=== PATIENT | female | born 1940 | race Caucasian/White ===

== ENCOUNTER 2017-11-17 11:58 | Outpatient (CLI) | payer MEDICARE, OTHER | END 2017-11-17 11:59 | disposition home or self-care (01) | LOC: BICMRI 11:58 | PROVIDERS: ATTEND Anesthesiology Pain Medicine | DX: M47.22 Other spondylosis with radiculopathy, cervical region (principal); M99.81 Other biomechanical lesions of cervical region; M50.11 Cervical disc disorder with radiculopathy, high cervical region; M48.02 Spinal stenosis, cervical region; M50.121 Cervical disc disorder at C4-C5 level with radiculopathy; M51.24 Other intervertebral disc displacement, thoracic region | CPT/HCPCS: 72141 ==

== ENCOUNTER 2018-02-22 10:18 | Outpatient (CLI) | payer MEDICARE, OTHER ==
[2018-02-22 10:49] LABS: Hemoglobin 12.9 g/dL (12.0-16.0); Mean Corpuscular HGB CONC 31.2 g/dL (32.0-36.0); Mean Corpuscular Hemoglobin 27.9 pg (27.0-31.0); Mean Corpuscular Volume 89.2 fL (78.0-98.0); Mean Platelet Volume 7.5 fL (7.4-10.4); Platelet Count 289 thou/uL (130-400); RBC Distribution Width 12.6 % (11.5-14.5); Red Blood Cell (RBC) Count 4.62 mill/uL (4.20-5.40); White Blood Cell (WBC) Count 9.3 thou/uL (4.8-10.8)
[2018-02-22 11:16] LABS: Anion Gap 14 mmol/L (10-20); BUN (Urea Nitrogen) 13 mg/dL (9.8-20.1); Calc. Creatinine Clearance 0 mL/min (70-130); Calcium 9.7 mg/dL (7.8-10.44); Carbon Dioxide 22 mmol/L (23-31); Chloride 108 mmol/L (98-107); Estimated GFR-MDRD 74; Glucose 137 mg/dL (83-110); Potassium 4.8 mmol/L (3.5-5.1); Sodium 139 mmol/L (136-145)
== END 2018-02-22 10:19 | disposition home or self-care (01) ==
LOC: LABBT 10:18
PROVIDERS: ATTEND Neurological Surgery
DX: Z01.812 Encounter for preprocedural laboratory examination (principal); M47.12 Other spondylosis with myelopathy, cervical region
CPT/HCPCS: 80048; 85027

== ENCOUNTER 2018-02-26 05:38 | Inpatient (IN) | payer MEDICARE, OTHER ==
[2018-02-26] MEDS ORDERED: CEFAZOLIN 2 GM/50 ML BAG ONE (06:27)
[2018-02-26] MEDS ORDERED: Sodium Chloride 0.9% 10 ML ONE (06:30)
[2018-02-26] MEDS ORDERED: Famotidine/PF 20 mg/2ml Vial ONE (07:05)
[2018-02-26] MEDS ORDERED: Fentanyl 100 MCG/2 ML VIAL ONE ×2 (07:05→08:43)
--- NOTE | 2018-02-26 08:34 | OP ---
DATE OF PROCEDURE: 02/26/2018 SURGEON: Joshua Andrade M.D. DENTAL BILLER: Duran Regan PA-C. PROCEDURES PERFORMED: Anterior cervical discectomy C3-C4 and C4-C5, interbody arthrodesis, intervert ebral biomechanical device, local morselized autograft, demineralized bone matrix, anterior titanium instrumentation C3-C4 and C4-C5. PROCEDURE IN DETAIL: The patient was brought to the operating room and intubated. She was positione d supine in modest extension on a gel-filled donut. Incision was made in the right precervical area and dissecting medial to the sternocleidomastoid muscle, identified the anterior cervical spine and o ur level was confirmed by x-ray. We debrided anterior osteophytes, placed distraction across the dis c spaces, and using the operating microscope and microdissection techniques, we completely decompress ed the intervertebral disks at C3-C4 and C4-C5. The bony endplates were then decorticated for the pu rpose of arthrodesis and appropriately sized intervertebral biomechanical PEEK device was brought int o the field, filled with demineralized bone matrix, local morselized autograft, and tapped into place securely at C3-C4, C4-C5. Next, an anterior plate was brought into the field and secured to C3, C4, and C5 using two 14 mm screws at each level. The wound was then extensively irrigated, immaculate h emostasis was secured, and the wound was closed in anatomic layers.
[2018-02-26] MEDS ORDERED: Ondansetron HCl/PF 4 MG/2 ML Vial IVP PRN (08:41)
[2018-02-26] MEDS ORDERED: Meperidine HCl/PF 25 MG/ML VIAL SLOW IVP PRN (08:41)
[2018-02-26] MEDS ORDERED: Promethazine HCl 25 MG/ML VIAL SLOW IVP PRN (08:41)
[2018-02-26] MEDS ORDERED: Promethazine HCl 25 MG/ML VIAL IM PRN (08:41)
[2018-02-26] MEDS ORDERED: Ketorolac Tromethamine 30 MG/ML VIAL IVP PRN (08:41)
[2018-02-26] MEDS ORDERED: diphenhydrAMINE 25 MG CAP PO PRN (08:53)
[2018-02-26] MEDS ORDERED: traMADol HCl 50 MG TAB PO PRN ×2 (08:53)
[2018-02-26] MEDS ORDERED: HYDROcodone/Acetaminophen 10/325 mg Tablet PO PRN ×2 (08:53)
[2018-02-26] MEDS ORDERED: diphenhydrAMINE 50 MG/ML VIAL IVP PRN (08:53)
[2018-02-26] MEDS ORDERED: Milk Of Magnesia 30 ML UDCUP PO PRN (08:53)
[2018-02-26] MEDS ORDERED: tiZANidine HCl 4 MG TAB PO PRN (08:53)
[2018-02-26] MEDS ORDERED: Morphine 4 MG/ML VIAL SLOW IVP PRN (08:53)
[2018-02-26] MEDS ORDERED: Mag-Al 1200 mg/1200 mg/30 ML UDCUP PO PRN (08:53)
[2018-02-26] MEDS ORDERED: Ondansetron PF 4 MG/2 ML Vial IVP PRN (08:55)
[2018-02-26] MEDS ORDERED: Labetalol HCl 100 MG/20 ML VIAL ONE (09:40)
[2018-02-26 10:18] VITALS: BMI 31.4
[2018-02-26] MEDS ORDERED: Diabetic Tussin 200 MG/10 ML UDCUP PO PRN (11:02)
[2018-02-26] MEDS ORDERED: Benzonatate 100 MG CAP PO PRN (11:02)
[2018-02-26] MEDS ORDERED: Dextrose 5% in Water 1,000 ML IV PRN (11:02)
[2018-02-26] MEDS ORDERED: Cepastat Lozenges 1 LOZ PO PRN (11:02)
[2018-02-26] MEDS ORDERED: HumaLOG 300 UNITS/3 ML VIAL SC PRN (11:02)
[2018-02-26] MEDS ORDERED: hydrALAZINE 20 MG/ML VIAL SLOW IVP PRN (11:02)
[2018-02-26] MEDS ORDERED: Bisacodyl 5 MG TAB PO PRN (11:02)
[2018-02-26] MEDS ORDERED: Acetaminophen 500 MG TAB PO PRN (11:02)
[2018-02-26] MEDS ORDERED: Dextrose 50% Abboject 50 ML SYRINGE SLOW IVP PRN (11:02)
[2018-02-26] MEDS ORDERED: HYDROcodone/Acetaminophen 5/325 mg Tablet PO PRN (11:02)
[2018-02-26] MEDS ORDERED: cloNIDine 0.1 MG TAB PO PRN (11:02)
[2018-02-26] MEDS ORDERED: Senokot S 8.6-50 MG TAB PO PRN (11:02)
[2018-02-26] MEDS: Sodium Chloride 0.9% 1,000 ML IV SCH ×2 (11:41→23:24)
--- NOTE | 2018-02-26 12:59 | PDOC.PN ---
- Subjective Encounter Start Date: 02/26/18 Encounter Start Time: 12:57 Subjective: Pt seen & examined.IM team conslted fo rmedical management -: PCP [facility] in [place]. -: s/p Cervical laminectomy - Objective MAR Reviewed: Yes Vital Signs & Weight: Vital Signs (12 hours) Temp Pulse Resp BP Pulse Ox 02/26/18 11:44 98.0 F 87 16 166/88 H 96 02/26/18 10:05 98.4 F 78 16 172/92 H 93 L Weight Weight 189 lb Additional Labs: Accuchecks 02/26/18 11:38 POC Glucose 199 H Phys Exam - Physical Examination Constitutional: NAD HEENT: PERRLA, moist MMs, sclera anicteric, oral pharynx no lesions Neck: no nodes, no JVD, supple, full ROM Respiratory: no wheezing, no rales, no rhonchi, clear to auscultation bilateral Cardiovascular: RRR, no significant murmur, no rub, gallop Gastrointestinal: soft, non-tender, no distention, positive bowel sounds Musculoskeletal: no edema, pulses present Neurological: non-focal, normal sensation, moves all 4 limbs Psychiatric: normal affect, A&O x 3 Skin: no rash Dx/Plan (1) HTN (hypertension) Code(s): I10 - ESSENTIAL (PRIMARY) HYPERTENSION Status: Acute Comment: uncontrolled (2) S/P laminectomy Code(s): Z98.890 - OTHER SPECIFIED POSTPROCEDURAL STATES Status: Acute (3) HLD (hyperlipidemia) Code(s): E78.5 - HYPERLIPIDEMIA, UNSPECIFIED Status: Chronic (4) DM2 (diabetes mellitus, type 2) Status: Chronic - Plan plan discussed w/ family, PT/OT, DVT proph w/lovenox cont home meds as below. add prn antihypertensives -: Stop metformin ,.add ISS and Accuchecks ACHS -: am labs -: HD stable. -: IM team will follow. * . Review of Systems - Review of Systems Constitutional: negative: fever, chills, sweats, weakness, malaise, other Respiratory: negative: Cough, Dry, Shortness of Breath, Hemoptysis, SOB with Excertion, Pleuritic Pain, Sputum, Wheezing Cardiovascular: negative: chest pain, palpitations, orthopnea, paroxysmal nocturnal dyspnea, edema, light headedness, other Gastrointestinal: negative: Nausea, Vomiting, Abdominal Pain, Diarrhea, Constipation, Melena, Hematochezia, Other Genitourinary: negative: Dysuria, Frequency, Incontinence, Hematuria, Retention , Other Musculoskeletal: negative: Neck Pain, Shoulder Pain, Arm Pain, Back Pain, Hand Pain, Leg Pain, Foot Pain, Other Skin: negative: Rash, Lesions, Fredrick, Bruising, Other Neurological: negative: Weakness, Numbness, Incoordination, Change in Speech, Confusion, Seizures, Other - Medications/Allergies Allergies/Adverse Reactions: Allergies Allergy/AdvReac Type Severity Reaction Status Date / Time No Known Allergies Allergy Verified 02/22/18 10:47 Medications: Current Medications Acetaminophen (Tylenol) 1,000 mg PO Q6H PRN PRN Reason: Mild Pain (1-3) Hydrocodone Bitart/Acetaminophen (Wiley 10/325) 1 tab PO Q4H PRN PRN Reason: PAIN (1-3) Hydrocodone Bitart/Acetaminophen (Wiley 10/325) 2 tab PO Q4H PRN PRN Reason: PAIN (4-6) Hydrocodone Bitart/Acetaminophen (Wiley 5/325) 1 tab PO Q4H PRN PRN Reason: Moderate Pain (4-6) Al Hydroxide/Mg Hydroxide (Maalox) 30 ml PO Q4H PRN PRN Reason: Heartburn or Indigestion Atorvastatin Calcium (Lipitor) 20 mg PO QPM HIREN Benzonatate (Tessalon) 100 mg PO Q6H PRN PRN Reason: Cough Bisacodyl (Dulcolax) 10 mg PO DAILYPRN PRN PRN Reason: Constipation Clonidine (Catapres) 0.1 mg PO Q4H PRN PRN Reason: SBP > 160____ Dextrose/Water (Dextrose 50%) 25 gm SLOW IVP PRN PRN PRN Reason: Hypoglycemia Diphenhydramine HCl (Benadryl) 25 mg PO Q6H PRN PRN Reason: Itching Diphenhydramine HCl (Benadryl) 25 mg IVP Q6H PRN PRN Reason: Itching Glucagon (Glucagon) 1 mg IM PRN PRN PRN Reason: Hypoglycemia Guaifenesin (Robitussin Sf) 200 mg PO Q4H PRN PRN Reason: Cough Hydralazine HCl (Apresoline) 10 mg SLOW IVP Q4H PRN PRN Reason: SBP > 180 and HR < 70 Sodium Chloride (Normal Saline 0.9%) 1,000 mls @ 75 mls/hr IV .[id number] [facility] Last Admin: 02/26/18 11:41 Dose: Not Given Cefazolin Sodium/Dextrose 2 gm (/ Device) 50 mls @ 100 mls/hr IVPB Q8HR [facility] Dextrose/Water (D5w) 1,000 mls @ 0 mls/hr IV .Q0M PRN PRN Reason: Hypoglycemia Insulin Human Lispro (Humalog) 0 units SC .MODERATE SLIDING SC PRN PRN Reason: Moderate Correctional Scale Insulin Human Lispro (Humalog) 0 units SC .BEDTIME SLIDING SC PRN PRN Reason: Bedtime Correctional Scale Magnesium Hydroxide (Milk Of Magnesium) 30 ml PO Q12H PRN PRN Reason: Constipation Morphine Sulfate (Morphine) 2 mg SLOW IVP Q1H PRN PRN Reason: Moderate Breakthrough Pain Morphine Sulfate (Morphine) 4 mg SLOW IVP Q1H PRN PRN Reason: SEVERE BREAKTHROUGH PAIN Ondansetron HCl (Zofran) 4 mg IVP Q6H PRN PRN Reason: Nausea/Vomiting Pantoprazole Sodium (Protonix) 40 mg PO QPM [facility] Pramipexole Dihydrochloride (Mirapex) 0.5 mg PO QPM [facility] Senna/Docusate Sodium (Senokot S) 2 tab PO BID PRN PRN Reason: Constipation Sodium Chloride (Flush - Normal Saline) 10 ml IVF Q12HR [facility] Last Admin: 02/26/18 11:41 Dose: Not Given Sodium Chloride (Flush - Normal Saline) 10 ml IVF PRN PRN PRN Reason: Saline Flush Throat Lozenges (Cepastat Lozenges) 1 shad PO Q2H PRN PRN Reason: Sore Throat Tizanidine HCl (Zanaflex) 4 mg PO Q6H PRN PRN Reason: MUSCLE SPASM Tramadol HCl (Ultram) 50 mg PO Q6H PRN PRN Reason: PAIN (1-3) Tramadol HCl (Ultram) 100 mg PO Q6H PRN PRN Reason: PAIN (4-6) Last Admin: 02/26/18 12:47 Dose: 100 mg
[2018-02-26] MEDS: CEFAZOLIN 2 GM/50 ML-DEXTROSE 2 GM in Premix Bag 1 BAG IVPB SCH ×2 (13:53→21:41)
[2018-02-26] MEDS ORDERED: Lidocaine 1% PF 5 ML VIAL ONE (15:01)
[2018-02-26] MEDS ORDERED: PROPOFOL 200 MG/20 ML VIAL ONE (15:01)
[2018-02-26] MEDS ORDERED: PHENYLEPHRINE-NS 100 MCG/ML 10 ML SYRINGE ONE (15:01)
[2018-02-26] MEDS ORDERED: Metoprolol Tartrate 5 MG/5 ML VIAL ONE (15:01)
[2018-02-26] MEDS ORDERED: Dexamethasone 20 MG/5 ML VIAL ONE (15:01)
[2018-02-26] MEDS ORDERED: Glycopyrrolate 0.2 MG/ML 5 ML SYRINGE ONE (15:01)
[2018-02-26] MEDS: HumaLOG 300 UNITS/3 ML VIAL SC PRN (16:45)
[2018-02-26] MEDS ORDERED: Non-Formulary Item 1 EACH (Ranitidine Hcl [Acid Reducer] 150 MG) PO SCH (21:00)
[2018-02-26] MEDS ORDERED: Atorvastatin Calcium 20 MG TAB PO SCH (21:00)
[2018-02-26] MEDS ORDERED: Pramipexole Di-HCl 0.25 MG TAB PO SCH (21:00)
[2018-02-27] MEDS: CEFAZOLIN 2 GM/50 ML-DEXTROSE 2 GM in Premix Bag 1 BAG IVPB SCH (05:22)
[2018-02-27 06:04] LABS: #Lymphocytes 2.8 thou/uL (1.20-3.40); #Monocytes 0.8 thou/uL (0.11-0.59); %Basophils 0.1 % (0.0-1.0); %Eosinophils 0.1 % (0.0-10.0); %Lymphocytes 20.4 % (21.0-51.0); %Monocytes 6.1 % (0.0-10.0); %Neutrophils 73.3 % (42.0-75.0); Hemoglobin 12.1 g/dL (12.0-16.0); Mean Corpuscular HGB CONC 31.4 g/dL (32.0-36.0); Mean Corpuscular Hemoglobin 27.9 pg (27.0-31.0); Mean Corpuscular Volume 88.8 fL (78.0-98.0); Mean Platelet Volume 7.4 fL (7.4-10.4); Platelet Count 277 thou/uL (130-400); RBC Distribution Width 12.4 % (11.5-14.5); Red Blood Cell (RBC) Count 4.33 mill/uL (4.20-5.40); White Blood Cell (WBC) Count 13.6 thou/uL (4.8-10.8)
[2018-02-27 06:17] LABS: Anion Gap 13 mmol/L (10-20); BUN (Urea Nitrogen) 13 mg/dL (9.8-20.1); Calc. Creatinine Clearance 90 mL/min (70-130); Calcium 9.2 mg/dL (7.8-10.44); Carbon Dioxide 25 mmol/L (23-31); Chloride 103 mmol/L (98-107); Estimated GFR-MDRD 79; Glucose 180 mg/dL (83-110); Potassium 4.1 mmol/L (3.5-5.1); Sodium 137 mmol/L (136-145)
[2018-02-27] MEDS: HumaLOG 300 UNITS/3 ML VIAL SC PRN (06:58)
--- NOTE | 2018-02-27 06:59 | DIS ---
ATTENDING PHYSICIAN: Dr. Joshua Andrade DATE OF ADMISSION: 02/26/2018 DATE OF DISCHARGE: 02/27/2018 HOSPITAL COURSE: The patient is a 77-year-old female status post C3-5 ACDF for degenerativ e disk disease who was admitted overnight for pain control and DORA placement. Overnight, her pain was well controlled with p.o. medications. She was tolerating a regular diet, and she was voiding appro priately. DORA drain output was 30 mL and removed the following morning by the nursing staff. I am se eing the patient at the bedside this morning. Patient seen at bedside the morning she is awake, alert, no acute distress. She has free active rang e of motion of all extremities. No focal motor weakness, no reflex asymmetry. She has steady gait. We will plan to dismiss the patient to home. I discussed home care precautions and will plan to foll ow up in 2 weeks in the office with x-rays. The patient has been provided with scripts for hydrocodo ne and Zanaflex.
[2018-02-27 08:05] VITALS: BP 127/77; TEMP 98
== END 2018-02-27 11:10 | disposition home or self-care (01) | DRG 473 ==
LOC: SDC 05:38 → SURG B 08:47
PROVIDERS: ADMIT Neurological Surgery; ATTEND Neurological Surgery
PROC: 0RB30ZZ Excision of Cervical Vertebral Disc, Open Approach (ICD-10-PCS; principal; 2018-02-26)
PROC: 0RG20A0 Fusion of 2 or more Cervical Vertebral Joints with Interbody Fusion Device, Anterior Approach, Anterior Column, Open Approach (ICD-10-PCS; 2018-02-26)
DX: M47.12 Other spondylosis with myelopathy, cervical region (principal); M50.31 Other cervical disc degeneration, high cervical region; I10 Essential (primary) hypertension; E78.5 Hyperlipidemia, unspecified; E11.9 Type 2 diabetes mellitus without complications
CPT/HCPCS: 36415; 36416; 76001; 80048; 85025; 90471; 90662; C1713; C1776; G0008; J0131; J1100; J2001; J2270; J2704; J3010; J3490; S0028

== ENCOUNTER 2018-03-13 15:56 | Outpatient (CLI) | payer MEDICARE, OTHER ==
--- NOTE | 2018-03-13 17:45 | RAD ---
THREE VIEWS CERVICAL SPINE SERIES: 03/13/18 INDICATION: Cervical spondylosis with myelopathy. FINDINGS: The C1-2 level is partially obscured which limits evaluation of this region. There is anterior cervic al disc fusion spanning C3 through C5 with anterior plate, two vertebral body screws at each fused le sally and intervening disc space prosthesis at C3-4 and C4-5. No hardware complication identified. No a cute malalignment within the imaged cervical spine, to the mid C7 level. There is multilevel cervical spine degenerative change. IMPRESSION: Postoperative cervical spine without acute hardware complication. POS: MATA
== END 2018-03-13 15:57 | disposition home or self-care (01) ==
LOC: TBSIIMAG 15:56
PROVIDERS: ATTEND Neurological Surgery
DX: M47.12 Other spondylosis with myelopathy, cervical region (principal); Z98.1 Arthrodesis status
CPT/HCPCS: 72040

== ENCOUNTER 2018-05-01 13:33 | Outpatient (CLI) | payer MEDICARE, OTHER ==
--- NOTE | 2018-05-01 14:41 | RAD ---
CERVICAL SPINE 4 VIEWS: Date: 05/01/18 COMPARISON: 03/13/18. HISTORY: Cervical radiculopathy, prior surgery. FINDINGS: Anterior diskectomy and fusion hardware is present at C3-4/C4-5, stable when compared to the prior ex amination. No prevertebral soft tissue swelling. No anterolisthesis or retrolisthesis is noted. There is degenerative change at the atlantoaxial interspace, stable as well. At C6-7, there is disc space narrowing with degenerative end plate change, as well as anterior and po sterior osteophyte formation. Open-mouth odontoid view demonstrates a normal appearing dens and C1-2 articulation. There is multilevel mid cervical spine facet and uncovertebral osteophyte formation bilaterally. IMPRESSION: Multilevel postoperative and degenerative change of the cervical spine as detailed above. POS: MATA
== END 2018-05-01 13:34 | disposition home or self-care (01) ==
LOC: TBSIIMAG 13:33
PROVIDERS: ATTEND Neurological Surgery
DX: M50.10 Cervical disc disorder with radiculopathy, unspecified cervical region (principal); M47.22 Other spondylosis with radiculopathy, cervical region; Z98.1 Arthrodesis status
CPT/HCPCS: 72040

== ENCOUNTER 2018-08-13 11:25 | Outpatient (CLI) | payer MEDICARE, OTHER ==
--- NOTE | 2018-08-13 11:54 | RAD ---
RIGHT HIP 2 VIEWS: HISTORY: Unilateral primary osteoarthritis, right hip pain for months. FINDINGS/IMPRESSION: Osteoarthrosis and degenerative changes right hip joint with joint space loss without acute fracture or dislocation. POS: TPC
== END 2018-08-13 11:26 | disposition home or self-care (01) ==
LOC: BICRAD 11:25
PROVIDERS: ATTEND Anesthesiology Pain Medicine
DX: M16.11 Unilateral primary osteoarthritis, right hip (principal)

== ENCOUNTER 2018-10-04 01:50 | Outpatient (CLI) | payer MEDICARE, OTHER ==
--- NOTE | 2018-10-05 21:25 | EKG ---
Test Reason : Blood Pressure : / mmHG Vent. Rate : 065 BPM Atrial Rate : 065 BPM P-R Int : 216 ms QRS Dur : 080 ms QT Int : 418 ms P-R-T Axes : 054 -66 040 degrees QTc Int : 434 ms Sinus rhythm with 1st degree A-V block Left axis deviation Low voltage QRS Cannot rule out Anterior infarct , age undetermined Abnormal ECG No previous ECGs available Confirmed by Pa ALONSO ([id number]) on 10/05/2018 9:25:08 PM Referred By: SHARON Confirmed By:Pa ALONSO
== END 2018-10-04 01:51 | disposition home or self-care (01) ==
LOC: LABBT 01:50
PROVIDERS: ATTEND Orthopaedic Surgery
DX: Z01.810 Encounter for preprocedural cardiovascular examination (principal); M16.11 Unilateral primary osteoarthritis, right hip
CPT/HCPCS: 93005; 93010

== ENCOUNTER 2018-10-04 14:30 | Inpatient (IN) | payer MEDICARE, OTHER ==
--- NOTE | 2018-10-04 09:35 | HP ---
HISTORY OF PRESENT ILLNESS: The patient is a 78-year-old female, who has a several history of progressive right hip pain, which has become much worse over the past 1 to 2 months. She has pain in the right denny, certain motions such as getting dressed and getting in and out of a car. She has had progressive symptoms despite restriction of activities, anti-inflammatory medications, and lifestyle adjustments. PAST MEDICAL HISTORY: She has had bilateral total knee replacements in the past. She has a history of depression, migraines, and diabetes. MEDICATIONS: Her current medications include; 1. Pantoprazole. 2. Metformin. 3. Ranitidine. 4. Lipitor. 5. Pramipexole. 6. Hydrocodone. ALLERGIES: SHE HAS NO KNOWN ALLERGIES. FAMILY HISTORY: Otherwise unremarkable. SOCIAL HISTORY: Otherwise unremarkable. REVIEW OF SYSTEMS: Otherwise unremarkable. PHYSICAL EXAMINATION: GENERAL: Reveals a healthy female. HEENT: Unremarkable. NECK: Supple. CHEST: Clear. HEART: Regular rate and rhythm. ABDOMEN: Soft and nontender. PELVIC: Deferred. RECTAL: Deferred. BREAST: Deferred. EXTREMITIES: Pertinent findings are related to her right hip. Her leg lengths were equal. There is tenderness in the greater trochanter and the anterior hip. There is decreased range of motion of the right hip and groin pain with internal rotation, which reproduces her hip and knee pain. There is a right antalgic gait. Neurovascular exam is intact. There is no specific tenderness about the right knee. DIAGNOSTIC DATA: X-rays of the right hip reveal moderately severe DJD in the right hip with minimal joint space remaining. There are [id number] changes on the left. X-rays of the right knee reveal a right total knee replacement in good position. IMPRESSION: 1. Degenerative arthritis right hip. 2. Status post bilateral total knee replacement. 3. History of diabetes. PLAN: Right total hip replacement. The nature of the surgery, length of recovery, and potential complications such as infection, loss of motion, incomplete relief, neurovascular injury, thromboembolic phenomena, leg-length discrepancy, possible transfusion, and need for revision have been discussed in detail. Job ID: [id number]
[2018-10-04 12:39] VITALS: BMI 29.9
[2018-10-04 16:11] LABS: #Basophils 0.1 thou/uL (0.0-0.2); #Eosinphils 0.3 thou/uL (0.0-0.7); #Monocytes 0.4 thou/uL (0.11-0.59); #Neutrophils 4.2 thou/uL (1.40-6.50); %Basophils 0.7 % (0.0-1.0); %Eosinophils 3.1 % (0.0-10.0); %Lymphocytes 44.5 % (21.0-51.0); %Monocytes 4.6 % (0.0-10.0); Hemoglobin 13.7 g/dL (12.0-16.0); Mean Corpuscular HGB CONC 32.6 g/dL (32.0-36.0); Mean Corpuscular Hemoglobin 29.1 pg (27.0-31.0); Mean Corpuscular Volume 89.3 fL (78.0-98.0); Mean Platelet Volume 7.6 fL (7.4-10.4); Platelet Count 287 thou/uL (130-400); RBC Distribution Width 12.5 % (11.5-14.5); Red Blood Cell (RBC) Count 4.72 mill/uL (4.20-5.40)
[2018-10-04 16:16] LABS: Prothrombin Time 13.4 SEC (12.0-14.7)
[2018-10-04 16:31] LABS: Bilirubin Negative (Negative); Blood, Urine Negative (Negative); Clarity CLOUDY (Clear); Glucose, Urine (Dipstick) Negative (Negative); Leukocyte Negative (Negative); Nitrite Negative (Negative); Protein, Urine (Dipstick) Negative (Neg-Trace); Specific Gravity, Urine 1.008 (1.002-1.036); Urobilinogen 0.2 mg/dL (0.2-1.0)
[2018-10-04 16:33] LABS: Hyaline Casts/LPF 0-3 HYALINE CAST LPF (0-3 Hyaline); WBC/HPF 0-3 HPF (0-3); Yeast-AUWi Flag 134.7 (0-25.0)
[2018-10-04 16:34] LABS: Anion Gap 12 mmol/L (10-20); BUN (Urea Nitrogen) 11 mg/dL (9.8-20.1); Calc. Creatinine Clearance 0 mL/min (70-130); Calcium 10.1 mg/dL (7.8-10.44); Carbon Dioxide 26 mmol/L (23-31); Chloride 105 mmol/L (98-107); Estimated GFR-MDRD 69; Glucose 107 mg/dL (83-110); Potassium 4.6 mmol/L (3.5-5.1); Sodium 138 mmol/L (136-145)
[2018-10-04 17:53] LABS: Bacteria/HPF 1+ HPF (None Seen); RBC/HPF 0-3 HPF (0-3); Yeast-All Forms None Seen HPF (None Seen)
[2018-10-09] MEDS ORDERED: Sodium Chloride 0.9% 100 ML ONE ×2 (07:28→12:50)
[2018-10-09] MEDS ORDERED: Tranexamic Acid 1,000 MG/10 ML VIAL ONE ×2 (07:28→12:49)
[2018-10-09] MEDS ORDERED: Midazolam HCl 2 mg/2 ml Vial ONE (07:41)
[2018-10-09] MEDS ORDERED: Fentanyl 100 MCG/2 ML VIAL ONE ×3 (07:41→12:23)
[2018-10-09] MEDS ORDERED: Fentanyl 5 mcg/Bup 0.075% Cadd 100 ML EPIDURAL SCH (08:30)
[2018-10-09] MEDS ORDERED: Vancomycin HCl 1.5 GM in Sodium Chloride 0.9% 250 ML 300 ML IVPB SCH ×2 (08:30→21:00)
[2018-10-09] MEDS ORDERED: Zolpidem Tartrate 5 MG TAB PO PRN ×2 (08:30→12:43)
[2018-10-09] MEDS ORDERED: Bupivacaine 0.25% 10 ML VIAL EPIDURAL PRN (08:30)
[2018-10-09] MEDS ORDERED: Promethazine HCl 25 MG/ML VIAL IM PRN ×2 (08:30→12:47)
[2018-10-09] MEDS ORDERED: diphenhydrAMINE 50 MG/ML VIAL IVP PRN (08:30)
[2018-10-09] MEDS ORDERED: Naloxone HCl 0.4 mg/ml Vial IV PRN (08:30)
[2018-10-09] MEDS ORDERED: Hydrocerin (Eucerin) Cream 120 gm Jar TOP PRN (08:30)
[2018-10-09] MEDS ORDERED: diphenhydrAMINE 50 MG/ML VIAL IM PRN (08:30)
[2018-10-09] MEDS ORDERED: traMADol HCl 50 MG TAB PO PRN ×3 (08:30→12:43)
[2018-10-09] MEDS ORDERED: Promethazine HCl 25 MG SUPP PR PRN (08:30)
[2018-10-09] MEDS ORDERED: Ondansetron PF 4 MG/2 ML Vial IVP PRN ×2 (08:30→12:43)
[2018-10-09] MEDS ORDERED: Naloxone HCl 0.4 mg/ml Vial IVP PRN (08:30)
[2018-10-09] MEDS ORDERED: diphenhydrAMINE 25 MG CAP PO PRN ×2 (08:30→12:43)
[2018-10-09] MEDS ORDERED: HYDROcodone/Acetaminophen 5/325 mg Tablet PO PRN (08:30)
[2018-10-09] MEDS ORDERED: Bupivacaine/Epinephrine 0.25% 30 ML VIAL ONE (11:28)
[2018-10-09] MEDS ORDERED: Tranexamic Acid 1,000 MG in Sodium Chloride 0.9% 100 ML IVPB SCH ×2 (12:00→12:43)
[2018-10-09] MEDS ORDERED: Ketorolac Tromethamine 30 MG/ML VIAL IVP SCH (12:00)
--- NOTE | 2018-10-09 12:14 | OP ---
DATE OF PROCEDURE: 10/09/2018 This is Dionicio Gonzalez PA-C dictating a report for Harlan Padilla MD. PREOPERATIVE DIAGNOSIS: End-stage bicompartmental osteoarthritis, right knee. POSTOPERATIVE DIAGNOSIS: End-stage bicompartmental osteoarthritis, right knee. PROCEDURE PERFORMED: Press-fit right total hip arthroplasty. SURGEON: Harlan Padilla MD PROTECTION ENGINEER: Dionicio Gonzalez PA-C COMPONENTS USED: [employer] Accolade II, size 3 press-fit hip stem with a 56 mm Tritanium press-fit acetabular shell, 10-degree polyethylene fixed-bearing insert and a 36 mm V40 metallic femoral head neutral offset. FINDINGS: End-stage severe degenerative bicompartmental disease, [id number]-[id number] arthrosis, periarticular osteophyte formation, large serous effusion hypertrophic synovium and capsule. ESTIMATED BLOOD LOSS: 300. INPUT: 1200 mL lactated Ringer's. OUTPUT: 200 mL clear yellow urine. ESTIMATED BLOOD LOSS: 300 mL. DRAINS: None. SPECIMENS: None. COMPLICATIONS: None. COUNTS: Correct. INDICATION FOR SURGERY: José is a 78-year-old white female, who has had progressive right hip groin and thigh pain for the last 5 to 7 years. She has failed conservative management and elected to proceed with total hip arthroplasty as definitive treatment of her pain. PROCEDURE IN DETAIL: After informed consent was obtained in the preoperative holding area, the patient was taken to the operative suite where general anesthesia was induced. The patient was then positioned in the lateral decubitus position. The hip was then prepped and draped in usual sterile fashion. The patient received preoperative antibiotics. Prior to incision, time-out was called and all members of the surgical team agreed upon site, surgeon, and patient. After this, a longitudinal incision was made directly over the trochanter, noted by palpation extending 2 fingerbreadths above and below the trochanter. The deeper subcutaneous layer was undermined with Bovie electrocautery. The iliotibial band was encountered and incised sharply and the plane below this was developed bluntly. A Charnley retractor was placed to hold this opened. The lateral aspect of the trochanter and the abductor muscles were encountered and then reflected anteriorly off the trochanter using Bovie electrocautery. Once this was completed, the anterior capsule was then encountered and identified and copious capsulotomy was carried out, exposing the femoral neck and head. Dislocation maneuver was then performed and an in situ provisional neck cut was then made using the oscillating saw. Attention was then turned to acetabular preparation. Sequential reaming was carried out up to the appropriate diameter and a trial was then malleted into place with good firm resistance and no pullout. The permanent acetabular shell was then malleted squarely into place, as was the appropriate liner. Once completed, the wound was copiously irrigated and attention was then turned to femoral preparation. Flexion and external rotation were performed of the exposed thigh and femoral elevators were then placed at the proximal aspect of the wound. Canal finder was used to establish the length of the canal and sequential reaming was carried out, followed by broaching. Once the appropriate stability was established with the trial broaches with flexion, extension and rotational stability, we did trial with neutral and 2 mm offset incremental necks. Once the appropriate size was decided upon, with good stability noted with flexion, extension, internal and external rotation and shuck being negative, we removed the femoral trial broach and malletted into place the permanent prosthesis with good firm fit, which was also stable to rotation. Again, the hip felt very stable to flexion, extension, internal and external rotation. Leg lengths appeared near anatomic clinically and we were quite happy with prosthesis placement. Copious irrigation was then carried out through the entirety of the wound. Primary closure of the abductors was accomplished with interrupted #2 Vicryl [id number] stitches and the IT band was then closed with interrupted #2 Vicryl, oversewn with a #2 running barbed Quill stitch. Subcutaneous fascia was closed with running barbed Quill stitch and a subcuticular Monocryl barbed Quill stitch was used for skin closure and augmented with skin cement. A sterile dressing was applied. The procedure was terminated without any complication. All counts were correct. The patient was awakened in the operative suite and taken to the recovery room in stable condition. Job ID: [id number] [facility]
--- NOTE | 2018-10-09 12:23 | RAD ---
2 views right hip HISTORY: Right hip arthroplasty. AP and lateral views right hip demonstrates a right hip complete arthroplasty. Femoral and acetabular components are in good position. No evidence of fractures, loosening or dislocation seen. IMPRESSION: right hip arthroplasty.
[2018-10-09] MEDS ORDERED: Fentanyl 100 MCG/2 ML VIAL SLOW IVP PRN ×2 (12:43)
[2018-10-09] MEDS ORDERED: Promethazine HCl 25 MG/ML VIAL SLOW IVP PRN ×2 (12:43→12:47)
[2018-10-09] MEDS ORDERED: HYDROcodone/Acetaminophen 10/325 mg Tablet PO PRN ×2 (12:43)
[2018-10-09] MEDS ORDERED: Acetaminophen 325 MG TAB PO PRN (12:43)
[2018-10-09] MEDS ORDERED: Ondansetron HCl/PF 4 MG/2 ML Vial IVP PRN (12:47)
[2018-10-09] MEDS ORDERED: Rocuronium Bromide 10 MG/ML (10ML VIAL) ONE (14:04)
[2018-10-09] MEDS ORDERED: PROPOFOL 200 MG/20 ML VIAL ONE (14:04)
[2018-10-09] MEDS ORDERED: ePHEDrine 50 MG/ML VIAL ONE (14:04)
[2018-10-09] MEDS ORDERED: Lidocaine 1% PF 5 ML VIAL ONE (14:04)
[2018-10-09] MEDS ORDERED: Phenylephrine HCL 10 MG/ML VIAL ONE (14:04)
[2018-10-09] MEDS ORDERED: Ondansetron PF 4 MG/2 ML Vial ONE (14:04)
[2018-10-09] MEDS ORDERED: Glycopyrrolate 0.2 MG/ML 5 ML SYRINGE ONE (14:04)
[2018-10-09] MEDS: Sodium Chloride 0.9% 1,000 ML IV SCH ×2 (14:44→21:06)
[2018-10-09] MEDS ORDERED: HumaLOG 300 UNITS/3 ML VIAL SC PRN (16:17)
[2018-10-09] MEDS ORDERED: Dextrose 5% in Water 1,000 ML IV PRN (16:17)
[2018-10-09] MEDS ORDERED: Dextrose 50% Abboject 50 ML SYRINGE SLOW IVP PRN (16:17)
[2018-10-09] MEDS: CEFAZOLIN 2 GM in Premix Bag 1 BAG IVPB SCH (17:11)
[2018-10-09] MEDS: Ketorolac Tromethamine 30 MG/ML VIAL IVP SCH (17:12)
[2018-10-09] MEDS: metFORMIN XR 500 MG TAB PO SCH (20:59)
[2018-10-09] MEDS: Famotidine 20 MG TAB PO SCH (20:59)
[2018-10-09] MEDS: Aspirin 81 mg Enteric Coated Tablet PO SCH (20:59)
[2018-10-09] MEDS: Senokot S 8.6-50 MG TAB PO SCH (20:59)
[2018-10-09] MEDS: Ferrous Gluconate 324 MG TAB PO SCH (20:59)
[2018-10-10] MEDS: Ketorolac Tromethamine 30 MG/ML VIAL IVP SCH ×4 (01:00→17:33)
[2018-10-10] MEDS: CEFAZOLIN 2 GM in Premix Bag 1 BAG IVPB SCH (01:00)
--- NOTE | 2018-10-10 01:10 | CON ---
DATE OF CONSULTATION: 10/09/2018 CONSULTING PHYSICIAN: Dr. Padilla. REASON FOR CONSULTATION: Medical management. HISTORY OF PRESENT ILLNESS: The patient is a very pleasant 78-year-old female with past medical history significant for severe osteoarthritis status post bilateral knee replacements in the past and chronic right hip pain with worsening symptoms, who presented for right total hip arthroplasty today with Dr. Padilla. The patient tolerated the procedure very well. She is seen resting comfortably postoperatively on the floor. She denies any complaints at this time. She has no nausea, shortness of breath, or chest pain. She denies any postoperative pain at this point. She is tolerating clear liquids well. The patient states that she has been very active, performing all of her ADLs and doing her own chores and gardening at home until she has been limited by her worsening right hip pain. The patient otherwise has been in her usual state of health. REVIEW OF SYSTEMS: 12-point review of systems performed and is negative except that stated above. The patient denies any recent illnesses or sick contacts. She has been feeling overall very well aside from her hip. PAST MEDICAL HISTORY: Significant for type 2 diabetes mellitus, hyperlipidemia, gastroesophageal reflux disease, depression, and migraines. PAST SURGICAL HISTORY: Positive for bilateral knee replacements as mentioned above, appendectomy, hysterectomy, tonsillectomy, and bilateral cataract repair. ALLERGIES: NO KNOWN DRUG ALLERGIES. HOME MEDICATIONS: 1. Metformin 500 mg p.o. b.i.d. 2. Pantoprazole 40 mg p.o. daily. 3. Mirapex 0.5 mg p.o. b.i.d. 4. Ranitidine 150 mg p.o. b.i.d. 5. Atorvastatin 20 mg p.o. daily. SOCIAL HISTORY: The patient denies any alcohol or tobacco use. No illicit drug use. FAMILY HISTORY: Noncontributory. PHYSICAL EXAMINATION: VITAL SIGNS: Blood pressure 102/57, O2 saturation 100% on 1 L nasal cannula, pulse 72, and temperature afebrile at 97.6. GENERAL: The patient is a mildly obese female, resting comfortably in bed, in no acute distress. HEENT: Head is atraumatic and normocephalic. Mucous membranes are moist. NECK: Trachea is midline. Supple. No lymphadenopathy. CV: S1 and S2. Regular rate and rhythm. No appreciable murmurs, rubs, or gallops. LUNGS: Regular respiratory rate and pattern. Clear to auscultation bilaterally. ABDOMEN: Positive bowel sounds. Soft, mildly obese, nontender. No masses. EXTREMITIES: Patient has no lower extremity pitting edema. Her right postoperative incision is dressed, there is no visible drainage or oozing, the dressing is dry. NEUROLOGIC: Cranial nerves 2 through 12 grossly intact. The patient is nonfocal. LABORATORY DATA: From October 04, 2018; WBC 9.0, RBC 4.72, hemoglobin 13.7, hematocrit 42.1, platelets 287. Sodium 138, potassium 4.6, chloride 105, carbon dioxide 26 , anion gap 12, creatinine 0.81. Urinalysis negative for leukocyte esterase, nitrate, or blood. ASSESSMENT: 1. Status post right total hip arthroplasty today with Dr. Padilla. 2. Type 2 diabetes mellitus. 3. Hyperlipidemia. 4. Gastroesophageal reflux disease. PLAN: Add Accu-Cheks as well as mild sliding scale insulin for diabetic coverage. Continue prophylactic antibiotics per Dr. Padilla's team, along with GI prophylaxis as well. We will hold the patient's home dose of Mirapex given her borderline hypotension in the setting of pain medications today. Continue aggressive physical therapy. Thank you for this consult. Job ID: [id number] [facility]
[2018-10-10 06:13] LABS: Mean Corpuscular HGB CONC 33.4 g/dL (32.0-36.0); Mean Corpuscular Hemoglobin 29.2 pg (27.0-31.0); Mean Corpuscular Volume 87.5 fL (78.0-98.0); Mean Platelet Volume 7.2 fL (7.4-10.4); Platelet Count 194 thou/uL (130-400); RBC Distribution Width 12.1 % (11.5-14.5); Red Blood Cell (RBC) Count 3.06 mill/uL (4.20-5.40); White Blood Cell (WBC) Count 9.5 thou/uL (4.8-10.8)
[2018-10-10] MEDS: Sodium Chloride 0.9% 1,000 ML IV SCH ×2 (08:07→17:42)
[2018-10-10] MEDS: Ferrous Gluconate 324 MG TAB PO SCH ×2 (08:10→20:34)
[2018-10-10] MEDS: Aspirin 81 mg Enteric Coated Tablet PO SCH ×2 (08:10→20:34)
[2018-10-10] MEDS: Famotidine 20 MG TAB PO SCH ×2 (08:10→20:34)
[2018-10-10] MEDS: Multivitamin W/ Minerals 1 TAB PO SCH (08:10)
[2018-10-10] MEDS: Atorvastatin Calcium 20 MG TAB PO SCH (08:10)
[2018-10-10] MEDS: Pramipexole Di-HCl 0.25 MG TAB PO SCH ×2 (08:10→20:34)
[2018-10-10] MEDS: Senokot S 8.6-50 MG TAB PO SCH ×2 (08:10→20:34)
[2018-10-10] MEDS: metFORMIN XR 500 MG TAB PO SCH ×2 (08:10→20:34)
[2018-10-10] MEDS ORDERED: PRAMIPEXOLE DI HCL PO SCH (09:00)
--- NOTE | 2018-10-10 13:57 | PDOC.PN ---
- Subjective Encounter Start Date: 10/10/18 Encounter Start Time: 13:55 Subjective: seen and examined -: has been having some nausea but no abd pain/diarrhea/vomiting - Objective MAR Reviewed: Yes Vital Signs & Weight: Vital Signs (12 hours) Temp Pulse Resp BP BP Pulse Ox Pulse Ox 10/10/18 11:41 92 L 10/10/18 11:30 99.4 F 97 20 112/50 L 93 L 10/10/18 09:33 98.2 F 97 18 101/57 L 10/10/18 08:10 94 L 10/10/18 08:00 90/47 L 10/10/18 07:41 99.5 F 100 15 89/49 L 94 L 10/10/18 04:31 99.5 F 95 18 98/56 L 95 Weight Admit Weight 180 lb Weight 180 lb I&O: 10/09/18 10/10/18 10/11/18 06:59 06:59 06:59 Intake Total 2112 Output Total 600 Balance 1512 Result Diagrams: 10/10/18 05:31 10/04/18 14:09 Additional Labs: Accuchecks 10/10/18 10/10/18 10/09/18 11:33 05:33 20:39 POC Glucose 120 H 94 172 H 10/09/18 16:45 POC Glucose 158 H Microbiology 10/04/18 14:09 Urine clean catch Urine Culture - Final 10/04/18 14:09 Mrsa Scrn Axilla,Groin,Nares Nasal Screen MRSA/MSSA - Final 10/04/18 14:09 Mrsa Scrn Axilla,Groin,Nares MRSA Screen - Final Negative--No MRSA Colonization Negative--No MRSA Colonization Negative--No MRSA Colonization Laboratory Tests 10/04/18 10/09/18 10/09/18 14:09 07:15 16:45 Hgb 13.7 POC Glucose 147 H 158 H 10/09/18 10/10/18 10/10/18 20:39 05:31 05:33 Hgb 9.0 L POC Glucose 172 H 94 Phys Exam - Physical Examination Constitutional: NAD HEENT: PERRLA, moist MMs, sclera anicteric, oral pharynx no lesions Neck: no nodes, no JVD, supple, full ROM Respiratory: no wheezing, no rales, no rhonchi, clear to auscultation bilateral Cardiovascular: RRR, no significant murmur Gastrointestinal: soft, non-tender, no distention, positive bowel sounds Musculoskeletal: no edema, pulses present Neurological: non-focal, normal sensation, moves all 4 limbs Psychiatric: normal affect, A&O x 3 Skin: no rash Dx/Plan (1) Postoperative anemia Code(s): D64.9 - ANEMIA, UNSPECIFIED Status: Acute Comment: Monitor.cont FeSO4 (2) Status post total hip replacement, right Code(s): Z96.641 - PRESENCE OF RIGHT ARTIFICIAL HIP JOINT Status: Acute (3) HTN (hypertension) Code(s): I10 - ESSENTIAL (PRIMARY) HYPERTENSION Status: Chronic Comment: uncontrolled (4) DM2 (diabetes mellitus, type 2) Status: Chronic Comment: controlled. monitor. cont metformin and ISS (5) HLD (hyperlipidemia) Code(s): E78.5 - HYPERLIPIDEMIA, UNSPECIFIED Status: Chronic Comment: stable.cont statin - Plan PT/OT, out of bed/ambulate, DVT proph w/SCDs ASA BID for DVT prophylaxis -: am labs -: HD stable.cont supportive care -: IM team will follow * . Review of Systems - Review of Systems Constitutional: malaise. negative: fever, chills, sweats, weakness, other Respiratory: negative: Cough, Dry, Shortness of Breath, Hemoptysis, SOB with Excertion, Pleuritic Pain, Sputum, Wheezing Cardiovascular: negative: chest pain, palpitations, orthopnea, paroxysmal nocturnal dyspnea, edema, light headedness, other Gastrointestinal: Nausea Genitourinary: negative: Dysuria, Frequency, Incontinence, Hematuria, Retention , Other Musculoskeletal: negative: Neck Pain, Shoulder Pain, Arm Pain, Back Pain, Hand Pain, Leg Pain, Foot Pain, Other Skin: negative: Rash, Lesions, Fredrick, Bruising, Other Neurological: negative: Weakness, Numbness, Incoordination, Change in Speech, Confusion, Seizures, Other - Medications/Allergies Allergies/Adverse Reactions: Allergies Allergy/AdvReac Type Severity Reaction Status Date / Time No Known Allergies Allergy Verified 02/22/18 10:47 Medications: Current Medications Acetaminophen (Tylenol) 650 mg PO Q4H PRN PRN Reason: Headache/Fever or Pain Hydrocodone Bitart/Acetaminophen ([place] 5/325) 1 tab PO Q4H PRN PRN Reason: Mild Pain 1-3 Hydrocodone Bitart/Acetaminophen ([place] 5/325) 2 tab PO Q4H PRN PRN Reason: For Moderate Pain 4-6 Last Admin: 10/09/18 21:06 Dose: 2 tab Aspirin (Ecotrin) 81 mg PO BID [facility] Last Admin: 10/10/18 08:10 Dose: 81 mg Atorvastatin Calcium (Lipitor) 20 mg PO DAILY [facility] Last Admin: 10/10/18 08:10 Dose: 20 mg Dextrose/Water (Dextrose 50%) 25 gm SLOW IVP PRN PRN PRN Reason: Hypoglycemia Diphenhydramine HCl (Benadryl) 25 mg PO Q3H PRN PRN Reason: Itching Last Admin: 10/09/18 18:42 Dose: 25 mg Diphenhydramine HCl (Benadryl) 25 mg IM Q3H PRN PRN Reason: Itching Diphenhydramine HCl (Benadryl) 25 mg IVP Q3H PRN PRN Reason: Itching Diphenhydramine HCl (Benadryl) 25 mg PO Q6H PRN PRN Reason: Itching Emollient Cream (Hydrocerin Cream) 0 gm TOP PRN PRN PRN Reason: Itching Famotidine (Pepcid) 20 mg PO BID [facility] Last Admin: 10/10/18 08:10 Dose: 20 mg Ferrous Gluconate (Fergon) 324 mg PO BID [facility] Last Admin: 10/10/18 08:10 Dose: 324 mg Glucagon (Glucagon) 1 mg IM PRN PRN PRN Reason: Hypoglycemia Fentanyl Citrate (Fentanyl/Bupivacaine) 100 mls @ 0 mls/hr EPIDURAL INF [facility] Last Admin: 10/10/18 06:00 Dose: 100 mls Sodium Chloride (Normal Saline 0.9%) 1,000 mls @ 100 mls/hr IV .Q10H [facility] Last Admin: 10/10/18 08:07 Dose: Not Given Dextrose/Water (D5w) 1,000 mls @ 0 mls/hr IV .Q0M PRN PRN Reason: Hypoglycemia Insulin Human Lispro (Humalog) 0 units SC .MILD SLIDING SCALE PRN PRN Reason: Mild Correctional Scale Iron/Minerals/Multivitamins (Theragran M) 1 tab PO DAILY [facility] Last Admin: 10/10/18 08:10 Dose: 1 tab Ketorolac Tromethamine (Toradol) 15 mg IVP Q6HR [facility] Stop: 10/14/18 18:01 Last Admin: 10/10/18 12:44 Dose: 15 mg Metformin HCl (Glucophage Xr) 500 mg PO BID [facility] Last Admin: 10/10/18 08:10 Dose: 500 mg Miscellaneous Information (Communication Order-Pharmacy) 1 each FS ASDIR [facility] Naloxone HCl (Narcan) 0.2 mg IV Q5MIN PRN PRN Reason: RR <=8 OR OBTUNDED/UNAROUSABLE Naloxone HCl (Narcan) 0.1 mg IVP Q15MIN PRN PRN Reason: URINARY RETENTION Ondansetron HCl (Zofran) 4 mg IVP Q6H PRN PRN Reason: Nausea/Vomiting Pantoprazole Sodium (Protonix) 40 mg PO DAILY [facility] Last Admin: 10/10/18 08:10 Dose: 40 mg Pramipexole Dihydrochloride (Mirapex) 0.5 mg PO BID [facility] Last Admin: 10/10/18 08:10 Dose: 0.5 mg Promethazine HCl (Phenergan) 12.5 mg IM Q4H PRN PRN Reason: Nausea Promethazine HCl (Phenergan Suppository) 25 mg [place] Q4H PRN PRN Reason: Nausea/Vomiting Promethazine HCl (Phenergan) 12.5 mg SLOW IVP Q4H PRN PRN Reason: Nausea/Vomiting Senna/Docusate Sodium (Senokot S) 2 tab PO BID [facility] Last Admin: 10/10/18 08:10 Dose: 2 tab Sodium Chloride (Flush - Normal Saline) 10 ml IVF PRN PRN PRN Reason: Saline Flush Tramadol HCl (Ultram) 50 mg PO Q6H PRN PRN Reason: Mild Pain 1-3 Tramadol HCl (Ultram) 100 mg PO Q6H PRN PRN Reason: Moderate Pain 4-6 Last Admin: 10/10/18 09:36 Dose: 100 mg Zolpidem Tartrate (Ambien) 5 mg PO HSPRN PRN PRN Reason: Insomnia
--- NOTE | 2018-10-10 16:19 | PRG ---
DATE OF SERVICE: 10/10/2018 SUBJECTIVE: José is a 78-year-old white female, who is postop day 1 from a right total hip arthroplasty. She is doing relatively well. Pain has been fairly well controlled with her epidural. OBJECTIVE: VITAL SIGNS: Temperature 98.7, pulse 93, respiratory rate 20, blood pressure 98/60. GENERAL: She is alert and oriented to person, place, time, and situation. Grossly nonfocal. Appropriate response with examiner. EXTREMITIES: Incision is clean. No strikethrough. No erythema. Leg lengths appear symmetric. No malrotation. LABORATORY DATA: Hemoglobin and hematocrit 9.0 and 26.8. IMPRESSION: 1. A 78-year-old female, postoperative day 1, right total hip arthroplasty, doing well. 2. Hypertension. 3. Hyperlipidemia. 4. Diabetes type 2. 5. Anemia. PLAN: Probable discharge tomorrow after discontinuing Mahoney and epidural. Job ID: [id number]
[2018-10-11] MEDS ORDERED: Ketorolac Tromethamine 30 MG/ML VIAL ONE (05:17)
[2018-10-11] MEDS ORDERED: traMADol HCl 50 MG TAB ONE (05:30)
[2018-10-11 09:34] LABS: Hemoglobin 9.4 g/dL (12.0-16.0); Red Blood Cell (RBC) Count 3.17 mill/uL (4.20-5.40); White Blood Cell (WBC) Count 13.8 thou/uL (4.8-10.8)
[2018-10-11 09:35] LABS: Mean Corpuscular HGB CONC 33.4 g/dL (32.0-36.0); Mean Corpuscular Hemoglobin 29.5 pg (27.0-31.0); Mean Corpuscular Volume 88.6 fL (78.0-98.0); Mean Platelet Volume 7.7 fL (7.4-10.4); Platelet Count 207 thou/uL (130-400); RBC Distribution Width 12.1 % (11.5-14.5)
[2018-10-11] MEDS: Senokot S 8.6-50 MG TAB PO SCH ×2 (09:41→20:08)
[2018-10-11] MEDS: Atorvastatin Calcium 20 MG TAB PO SCH (09:42)
[2018-10-11] MEDS: Aspirin 81 mg Enteric Coated Tablet PO SCH ×2 (09:42→20:08)
[2018-10-11] MEDS: Pramipexole Di-HCl 0.25 MG TAB PO SCH ×2 (09:43→20:07)
[2018-10-11] MEDS: metFORMIN XR 500 MG TAB PO SCH ×2 (09:44→20:08)
[2018-10-11] MEDS: Famotidine 20 MG TAB PO SCH ×2 (09:44→20:08)
[2018-10-11] MEDS: Multivitamin W/ Minerals 1 TAB PO SCH (09:44)
[2018-10-11] MEDS: Ferrous Gluconate 324 MG TAB PO SCH ×2 (09:45→20:08)
[2018-10-11] MEDS ORDERED: HYDROcodone/Acetaminophen 10/325 mg Tablet PO PRN ×2 (11:21)
--- NOTE | 2018-10-11 11:21 | PDOC.PN ---
- Subjective Encounter Start Date: 10/11/18 Encounter Start Time: :19 Subjective: feels anuseated still.feels a little weak. no vomiting -: passing gas but no BM yet - Objective MAR Reviewed: Yes Vital Signs & Weight: Weight Admit Weight 180 lb Weight 180 lb I&O: 10/10/18 10/11/18 10/12/18 06:59 06:59 06:59 Intake Total 2112 750 Output Total 600 300 Balance 1512 450 Result Diagrams: 10/11/18 06:06 10/04/18 14:09 Additional Labs: Accuchecks 10/11/18 10/10/18 10/10/18 05:51 21:17 15:48 POC Glucose 138 H 154 H 166 H 10/10/18 11:33 POC Glucose 120 H Microbiology 10/04/18 14:09 Urine clean catch Urine Culture - Final 10/04/18 14:09 Mrsa Scrn Axilla,Groin,Nares Nasal Screen MRSA/MSSA - Final 10/04/18 14:09 Mrsa Scrn Axilla,Groin,Nares MRSA Screen - Final Negative--No MRSA Colonization Negative--No MRSA Colonization Negative--No MRSA Colonization Laboratory Tests 10/04/18 10/10/18 10/11/18 14:09 05:31 06:06 Hgb 13.7 9.0 L 9.4 L Phys Exam - Physical Examination Constitutional: NAD pale HEENT: PERRLA, moist MMs, sclera anicteric, oral pharynx no lesions Neck: no nodes, no JVD, supple, full ROM Respiratory: no wheezing, no rales, no rhonchi Cardiovascular: RRR, no significant murmur Gastrointestinal: soft, non-tender, no distention, positive bowel sounds Musculoskeletal: no edema, pulses present Neurological: non-focal, normal sensation, moves all 4 limbs Psychiatric: normal affect, A&O x 3 Dx/Plan (1) Postoperative anemia Code(s): D64.9 - ANEMIA, UNSPECIFIED Status: Acute Comment: Monitor.cont FeSO4.stable for now. recheck in am (2) Leucocytosis Code(s): D72.829 - ELEVATED WHITE BLOOD CELL COUNT, UNSPECIFIED Status: Acute Comment: likley reactive post-op. no left shift or bandemia. monitor. urine Cx negative (3) Status post total hip replacement, right Code(s): Z96.641 - PRESENCE OF RIGHT ARTIFICIAL HIP JOINT Status: Acute (4) HTN (hypertension) Code(s): I10 - ESSENTIAL (PRIMARY) HYPERTENSION Status: Chronic Comment: uncontrolled (5) DM2 (diabetes mellitus, type 2) Status: Chronic Comment: controlled. monitor. cont metformin and ISS (6) HLD (hyperlipidemia) Code(s): E78.5 - HYPERLIPIDEMIA, UNSPECIFIED Status: Chronic Comment: stable.cont statin - Plan DVT proph w/SCDs add PPI daily.cont maalox prn -: recommend in house monitroing for 1 more day -: HD stable but remains nauseous and looks pale w drop in Hb -: IM team will follow -: CBC ,BMP in am * . Review of Systems - Review of Systems Constitutional: weakness ENT: negative: Ear Pain, Ear Discharge, Nose Pain, Nose Discharge, Nose Congestion, Mouth Pain, Mouth Swelling, Throat Pain, Throat Swelling, Other Respiratory: negative: Cough, Dry, Shortness of Breath, Hemoptysis, SOB with Excertion, Pleuritic Pain, Sputum, Wheezing Cardiovascular: negative: chest pain, palpitations, orthopnea, paroxysmal nocturnal dyspnea, edema, light headedness, other Gastrointestinal: Nausea. negative: Vomiting, Abdominal Pain, Diarrhea, Constipation, Melena, Hematochezia, Other Genitourinary: negative: Dysuria, Frequency, Incontinence, Hematuria, Retention , Other Musculoskeletal: negative: Neck Pain, Shoulder Pain, Arm Pain, Back Pain, Hand Pain, Leg Pain, Foot Pain, Other Neurological: negative: Weakness, Numbness, Incoordination, Change in Speech, Confusion, Seizures, Other - Medications/Allergies Allergies/Adverse Reactions: Allergies Allergy/AdvReac Type Severity Reaction Status Date / Time No Known Allergies Allergy Verified 02/22/18 10:47 Medications: Current Medications Acetaminophen (Tylenol) 650 mg PO Q4H PRN PRN Reason: Headache/Fever or Pain Last Admin: 10/11/18 09:40 Dose: 650 mg Hydrocodone Bitart/Acetaminophen ([place] 5/325) 1 tab PO Q4H PRN PRN Reason: Mild Pain 1-3 Hydrocodone Bitart/Acetaminophen ([place] 5/325) 2 tab PO Q4H PRN PRN Reason: For Moderate Pain 4-6 Last Admin: 10/09/18 21:06 Dose: 2 tab Aspirin (Ecotrin) 81 mg PO BID [facility] Last Admin: 10/11/18 09:42 Dose: 81 mg Atorvastatin Calcium (Lipitor) 20 mg PO DAILY [facility] Last Admin: 10/11/18 09:42 Dose: 20 mg Dextrose/Water (Dextrose 50%) 25 gm SLOW IVP PRN PRN PRN Reason: Hypoglycemia Diphenhydramine HCl (Benadryl) 25 mg PO Q3H PRN PRN Reason: Itching Last Admin: 10/09/18 18:42 Dose: 25 mg Diphenhydramine HCl (Benadryl) 25 mg IM Q3H PRN PRN Reason: Itching Diphenhydramine HCl (Benadryl) 25 mg IVP Q3H PRN PRN Reason: Itching Diphenhydramine HCl (Benadryl) 25 mg PO Q6H PRN PRN Reason: Itching Emollient Cream (Hydrocerin Cream) 0 gm TOP PRN PRN PRN Reason: Itching Famotidine (Pepcid) 20 mg PO BID [facility] Last Admin: 10/11/18 09:44 Dose: 20 mg Ferrous Gluconate (Fergon) 324 mg PO BID [facility] Last Admin: 10/11/18 09:45 Dose: 324 mg Glucagon (Glucagon) 1 mg IM PRN PRN PRN Reason: Hypoglycemia Fentanyl Citrate (Fentanyl/Bupivacaine) 100 mls @ 0 mls/hr EPIDURAL INF [facility] Last Admin: 10/10/18 06:00 Dose: 100 mls Sodium Chloride (Normal Saline 0.9%) 1,000 mls @ 100 mls/hr IV .Q10H [facility] Last Admin: 10/10/18 17:42 Dose: Not Given Dextrose/Water (D5w) 1,000 mls @ 0 mls/hr IV .Q0M PRN PRN Reason: Hypoglycemia Insulin Human Lispro (Humalog) 0 units SC .MILD SLIDING SCALE PRN PRN Reason: Mild Correctional Scale Iron/Minerals/Multivitamins (Theragran M) 1 tab PO DAILY [facility] Last Admin: 10/11/18 09:44 Dose: 1 tab Ketorolac Tromethamine (Toradol) 15 mg IVP Q6HR [facility] Stop: 10/14/18 18:01 Last Admin: 10/10/18 17:33 Dose: 15 mg Metformin HCl (Glucophage Xr) 500 mg PO BID [facility] Last Admin: 10/11/18 09:44 Dose: 500 mg Miscellaneous Information (Communication Order-Pharmacy) 1 each FS ASDIR [facility] Naloxone HCl (Narcan) 0.2 mg IV Q5MIN PRN PRN Reason: RR <=8 OR OBTUNDED/UNAROUSABLE Naloxone HCl (Narcan) 0.1 mg IVP Q15MIN PRN PRN Reason: URINARY RETENTION Ondansetron HCl (Zofran) 4 mg IVP Q6H PRN PRN Reason: Nausea/Vomiting Last Admin: 10/11/18 09:48 Dose: 4 mg Pantoprazole Sodium (Protonix) 40 mg PO DAILY [facility] Last Admin: 10/11/18 09:45 Dose: 40 mg Pramipexole Dihydrochloride (Mirapex) 0.5 mg PO BID [facility] Last Admin: 10/11/18 09:43 Dose: 0.5 mg Promethazine HCl (Phenergan) 12.5 mg IM Q4H PRN PRN Reason: Nausea Promethazine HCl (Phenergan Suppository) [address] Q4H PRN PRN Reason: Nausea/Vomiting Promethazine HCl (Phenergan) 12.5 mg SLOW IVP Q4H PRN PRN Reason: Nausea/Vomiting Senna/Docusate Sodium (Senokot S) 2 tab PO BID [facility] Last Admin: 10/11/18 09:41 Dose: 2 tab Sodium Chloride (Flush - Normal Saline) 10 ml IVF PRN PRN PRN Reason: Saline Flush Tramadol HCl (Ultram) 50 mg PO Q6H PRN PRN Reason: Mild Pain 1-3 Tramadol HCl (Ultram) 100 mg PO Q6H PRN PRN Reason: Moderate Pain 4-6 Last Admin: 10/10/18 09:36 Dose: 100 mg Zolpidem Tartrate (Ambien) 5 mg PO HSPRN PRN PRN Reason: Insomnia
[2018-10-11] MEDS: Ketorolac Tromethamine 30 MG/ML VIAL IVP SCH ×5 (11:58→18:49)
[2018-10-11] MEDS: Sodium Chloride 0.9% 1,000 ML IV SCH ×3 (11:59→19:57)
--- NOTE | 2018-10-11 13:44 | PQF ---
CLINICAL DOCUMENTATION IMPROVEMENT CLARIFICATION FORM: ICD-10 Updated PLEASE DO AN ADDENDUM TO THE PROGRESS NOTE WITH ANY DOCUMENTATION UPDATES OR ADDITIONS AND CARRY THROUGH TO DC SUMMARY. THANK YOU. DATE: 10/11/2018 ATTN: Dr. Donnelly Please exercise your independent, professional judgment in responding to the clarification form. Clinical indicators are provided on the bottom of this form for your review Please check appropriate box(s): [ ] Acute blood loss anemia [ X ] Post-op anemia related to acute blood loss [ ] Other diagnosis [ ] Unable to determine In addition, please specify: Present on Admission (POA): [ ] Yes [ X ] No [ ] Unable to determine For continuity of documentation, please document condition throughout progress notes and discharge summary. Thank You. CLINICAL INDICATORS - SIGNS / SYMPTOMS / LABS 10/04/2018 10/10/201810/10 (Cony) Hgb 13.7 9.0 10/11 (Cony) Postoperative anemia. Acute. HD stable but remains nauseous and looks pale w drop in Hb RISKS: 10/09 Op Note: Press-fit right total hip arthroplasty. Estimated blood loss 300ml. TREATMENT: 10/11 (Cony) Monitor. cont FeSO4. stable for now. recheck in am CBC with differential ordered 10/12. Thank you, Karlie (This form is maintained as a part of the permanent medical record) 2015 [facility], [employer]. All Rights Reserved Karlie Ricketts RN, BSN [email or web address] Office: [phone] [facility] FACILITY[facility]obar
--- NOTE | 2018-10-11 15:53 | RAD ---
PA AND LATERAL VIEWS OF THE CHEST; 10/11/18 HISTORY: Low oxygen saturation. FINDINGS: The heart is enlarged. No focal areas of consolidation, pneumothoraces, quinn pulmonary edema, or ple ural effusions are seen. There are mild degenerative changes in the spine. IMPRESSION: Cardiomegaly. POS: OFF
[2018-10-11] MEDS: Ibuprofen 600 MG TAB PO SCH (18:49)
[2018-10-12] MEDS: Ibuprofen 600 MG TAB PO SCH ×3 (02:29→18:04)
[2018-10-12 04:44] LABS: #Eosinphils 0.6 thou/uL (0.0-0.7); #Monocytes 0.7 thou/uL (0.11-0.59); #Neutrophils 6.9 thou/uL (1.40-6.50); %Basophils 0.1 % (0.0-1.0); %Eosinophils 5.1 % (0.0-10.0); %Lymphocytes 26.5 % (21.0-51.0); %Monocytes 6.5 % (0.0-10.0); %Neutrophils 61.9 % (42.0-75.0); Hemoglobin 8.7 g/dL (12.0-16.0); Mean Corpuscular HGB CONC 33.1 g/dL (32.0-36.0); Mean Corpuscular Hemoglobin 29.4 pg (27.0-31.0); Mean Corpuscular Volume 88.8 fL (78.0-98.0); Mean Platelet Volume 7.2 fL (7.4-10.4); Platelet Count 190 thou/uL (130-400); Red Blood Cell (RBC) Count 2.97 mill/uL (4.20-5.40); White Blood Cell (WBC) Count 11.2 thou/uL (4.8-10.8)
[2018-10-12 05:06] LABS: Anion Gap 10 mmol/L (10-20); BUN (Urea Nitrogen) 11 mg/dL (9.8-20.1); Calc. Creatinine Clearance 95 mL/min (70-130); Calcium 8.1 mg/dL (7.8-10.44); Carbon Dioxide 24 mmol/L (23-31); Chloride 99 mmol/L (98-107); Estimated GFR-MDRD 90; Glucose 126 mg/dL (83-110); Potassium 3.7 mmol/L (3.5-5.1); Sodium 129 mmol/L (136-145)
[2018-10-12] MEDS: Sodium Chloride 0.9% 1,000 ML IV SCH ×3 (06:48→12:11)
[2018-10-12] MEDS: Famotidine 20 MG TAB PO SCH ×2 (08:31→20:25)
[2018-10-12] MEDS: Multivitamin W/ Minerals 1 TAB PO SCH (08:31)
[2018-10-12] MEDS: Aspirin 81 mg Enteric Coated Tablet PO SCH ×2 (08:31→20:25)
[2018-10-12] MEDS: Pramipexole Di-HCl 0.25 MG TAB PO SCH ×2 (08:31→20:25)
[2018-10-12] MEDS: Atorvastatin Calcium 20 MG TAB PO SCH (08:31)
[2018-10-12] MEDS: Ferrous Gluconate 324 MG TAB PO SCH ×2 (08:31→20:25)
[2018-10-12] MEDS: metFORMIN XR 500 MG TAB PO SCH ×2 (08:31→20:25)
[2018-10-12] MEDS: Senokot S 8.6-50 MG TAB PO SCH ×2 (08:32→20:26)
[2018-10-12 12:41] LABS: Sodium 129 mmol/L (136-145)
--- NOTE | 2018-10-12 13:38 | PDOC.PN ---
- Subjective Encounter Start Date: 10/12/18 Encounter Start Time: 13:35 Subjective: feels a little better.no nuasea but still feels weak - Objective MAR Reviewed: Yes Vital Signs & Weight: Vital Signs (12 hours) Temp Pulse Resp BP BP BP Pulse Ox 10/12/18 11:10 98.3 F 93 18 111/67 93 L 10/12/18 08:30 96 10/12/18 07:20 98.2 F 89 18 123/73 96 10/12/18 04:15 97.9 F 87 16 107/61 96 Weight Admit Weight 180 lb Weight 180 lb I&O: 10/11/18 10/12/18 10/13/18 06:59 06:59 06:59 Intake Total 750 360 840 Output Total 300 125 Balance 450 235 840 Result Diagrams: 10/12/18 04:17 10/12/18 12:13 Additional Labs: Accuchecks 10/12/18 10/12/18 10/11/18 11:12 06:29 20:40 POC Glucose 154 H 134 H 130 H 10/11/18 16:27 POC Glucose 131 H Phys Exam - Physical Examination pale and tired looking HEENT: PERRLA, moist MMs, sclera anicteric, oral pharynx no lesions Neck: no nodes, no JVD, supple, full ROM Respiratory: no wheezing, no rales, no rhonchi, clear to auscultation bilateral Cardiovascular: RRR, no significant murmur Gastrointestinal: soft, non-tender, no distention, positive bowel sounds Musculoskeletal: no edema, pulses present Neurological: non-focal, normal sensation, moves all 4 limbs Psychiatric: normal affect, A&O x 3 Skin: no rash Dx/Plan (1) Postoperative anemia Code(s): D64.9 - ANEMIA, UNSPECIFIED Status: Acute Comment: Monitor.cont FeSO4.stable for now. recheck in am. Hb went from 13.7 to 8.7 today (2) Hyponatremia Code(s): E87.1 - HYPO-OSMOLALITY AND HYPONATREMIA Status: Acute (3) Leucocytosis Code(s): D72.829 - ELEVATED WHITE BLOOD CELL COUNT, UNSPECIFIED Status: Acute Comment: likley reactive post-op. no left shift or bandemia. monitor. urine Cx negative (4) Status post total hip replacement, right Code(s): Z96.641 - PRESENCE OF RIGHT ARTIFICIAL HIP JOINT Status: Acute (5) HTN (hypertension) Code(s): I10 - ESSENTIAL (PRIMARY) HYPERTENSION Status: Chronic Comment: uncontrolled (6) DM2 (diabetes mellitus, type 2) Status: Chronic Comment: controlled. monitor. cont metformin and ISS (7) HLD (hyperlipidemia) Code(s): E78.5 - HYPERLIPIDEMIA, UNSPECIFIED Status: Chronic Comment: stable.cont statin - Plan DVT proph w/SCDs recheck sodium also low again. will cancel DC -: start fluid restriction.stop NS.consult nephrology -: recheck in am.check TSH -: moitor H/H. Trabsfuse to keep Hb>7 or if any symptoms * .
--- NOTE | 2018-10-13 00:16 | CON ---
DATE OF CONSULTATION: CONSULTING PHYSICIAN: Jinny Flor MD REASON FOR CONSULTATION: Hyponatremia. IMPRESSION: Hyponatremia, query cause. PLAN: Urine chemistry including urine sodium and urine osmolality to be able to identify what kind of hyponatremia this patient has and be able to rule out SIADH. HISTORY OF PRESENT ILLNESS: History is that of 78-year-old female patient who presented here with worsening chronic right hip pain. The patient did undergo elective hip arthroplasty and noted with a low sodium of 129. As a result, the Medical Team consulted Renal for further management. PAST MEDICAL HISTORY: Significant for type 2 diabetes, dyslipidemia, reflux disease, depression, and migraine. ALLERGIES: NO KNOWN DRUG ALLERGIES. MEDICATIONS: Reviewed and as documented on marker.to. SOCIAL HISTORY: No alcohol, no tobacco, no illicit drug use. REVIEW OF SYSTEMS: As documented in the body of history. All other systems were reviewed and were found not to be significantly related to present illness. LABORATORY INVESTIGATION: Showed hemoglobin 8.7, sodium of 129. PHYSICAL EXAMINATION: GENERAL: The patient was found not to be in any obvious distress with high-flow oxygen nasal cannula. VITAL SIGNS: Noted with following vital signs; afebrile, temperature 98.3, pulse 93, respiratory rate of 18, O2 saturation 93% with blood pressure 111/67. HEENT: Unremarkable. Moist oral mucosa. NECK: Supple. No conjunctival injection or icterus. CARDIOVASCULAR SYSTEM: First and second heart sounds were hard. RESPIRATORY SYSTEM: Clear to auscultation. DIGESTIVE SYSTEM: Revealed a benign abdomen with positive bowel sounds. EXTREMITIES: No peripheral edema. SKIN: No new gross rash. LYMPHATICS: No peripheral lymphadenopathy. In summary, this is a 78-year-old female patient who presented here for hip arthroplasty, now noted with hyponatremia. Thank you for this consultation. We will follow with you. Job ID: [id number]
[2018-10-13] MEDS: Ibuprofen 600 MG TAB PO SCH ×2 (04:58→08:33)
[2018-10-13] MEDS: HYDROcodone/Acetaminophen 5/325 mg Tablet PO PRN ×2 (05:11→13:18)
[2018-10-13 06:46] LABS: #Eosinphils 0.5 thou/uL (0.0-0.7); #Lymphocytes 2.5 thou/uL (1.20-3.40); #Monocytes 0.7 thou/uL (0.11-0.59); #Neutrophils 5.5 thou/uL (1.40-6.50); %Basophils 0.4 % (0.0-1.0); %Eosinophils 5.3 % (0.0-10.0); %Lymphocytes 27.4 % (21.0-51.0); %Monocytes 7.7 % (0.0-10.0); %Neutrophils 59.3 % (42.0-75.0); Hemoglobin 9.1 g/dL (12.0-16.0); Mean Corpuscular HGB CONC 33.2 g/dL (32.0-36.0); Mean Corpuscular Hemoglobin 29.3 pg (27.0-31.0); Mean Corpuscular Volume 88.1 fL (78.0-98.0); Mean Platelet Volume 7.1 fL (7.4-10.4); Platelet Count 256 thou/uL (130-400); RBC Distribution Width 12.1 % (11.5-14.5); Red Blood Cell (RBC) Count 3.12 mill/uL (4.20-5.40); White Blood Cell (WBC) Count 9.2 thou/uL (4.8-10.8)
[2018-10-13 07:14] LABS: Anion Gap 9 mmol/L (10-20); BUN (Urea Nitrogen) 7 mg/dL (9.8-20.1); Calc. Creatinine Clearance 89 mL/min (70-130); Calcium 8.9 mg/dL (7.8-10.44); Carbon Dioxide 27 mmol/L (23-31); Chloride 102 mmol/L (98-107); Estimated GFR-MDRD 84; Glucose 129 mg/dL (83-110); Potassium 4.1 mmol/L (3.5-5.1); Sodium 134 mmol/L (136-145)
[2018-10-13] MEDS: Pramipexole Di-HCl 0.25 MG TAB PO SCH (08:31)
[2018-10-13] MEDS: Ferrous Gluconate 324 MG TAB PO SCH (08:32)
[2018-10-13] MEDS: metFORMIN XR 500 MG TAB PO SCH (08:32)
[2018-10-13] MEDS: Aspirin 81 mg Enteric Coated Tablet PO SCH (08:32)
[2018-10-13] MEDS: Multivitamin W/ Minerals 1 TAB PO SCH (08:32)
[2018-10-13] MEDS: Senokot S 8.6-50 MG TAB PO SCH (08:32)
[2018-10-13] MEDS: Famotidine 20 MG TAB PO SCH (08:32)
[2018-10-13] MEDS: Atorvastatin Calcium 20 MG TAB PO SCH (08:32)
[2018-10-13 12:24] VITALS: BP 123/67; TEMP 98.4
--- NOTE | 2018-10-13 13:51 | PDOC.PN ---
- Subjective Encounter Start Date: 10/13/18 Encounter Start Time: 13:49 Subjective: seen and examined and feels much better.no new complaints - Objective MAR Reviewed: Yes Vital Signs & Weight: Vital Signs (12 hours) Temp Pulse Resp BP BP Pulse Ox 10/13/18 11:23 98.4 F 93 16 123/67 95 10/13/18 07:35 98.8 F 105 H 14 98/61 93 L 10/13/18 04:00 97.7 F 95 16 118/72 93 L Weight Admit Weight 180 lb Weight 180 lb I&O: 10/12/18 10/13/18 10/14/18 06:59 06:59 06:59 Intake Total 360 1540 Output Total 125 Balance 235 1540 Result Diagrams: 10/13/18 06:22 10/13/18 06:22 Additional Labs: Accuchecks 10/13/18 10/13/18 10/12/18 11:21 05:56 21:10 POC Glucose 127 H 133 H 135 H 10/12/18 15:16 POC Glucose 120 H Phys Exam - Physical Examination Constitutional: NAD HEENT: PERRLA, moist MMs, sclera anicteric, TM's clear, oral pharynx no lesions , 2+ tonsils Neck: no nodes, no JVD, supple, full ROM Respiratory: no wheezing, no rales, no rhonchi, clear to auscultation bilateral Cardiovascular: RRR, no significant murmur Gastrointestinal: soft, non-tender, no distention, positive bowel sounds Musculoskeletal: no edema, pulses present Neurological: non-focal, normal sensation, moves all 4 limbs Psychiatric: normal affect, A&O x 3 Dx/Plan (1) Postoperative anemia Code(s): D64.9 - ANEMIA, UNSPECIFIED Status: Acute Comment: Monitor.cont FeSO4.stable for now. recheck in am. improved today (2) Hyponatremia Code(s): E87.1 - HYPO-OSMOLALITY AND HYPONATREMIA Status: Acute Comment: improved with fluid restriction (3) Leucocytosis Code(s): D72.829 - ELEVATED WHITE BLOOD CELL COUNT, UNSPECIFIED Status: Acute Comment: likley reactive post-op. no left shift or bandemia. monitor. urine Cx negative (4) Status post total hip replacement, right Code(s): Z96.641 - PRESENCE OF RIGHT ARTIFICIAL HIP JOINT Status: Acute (5) HTN (hypertension) Code(s): I10 - ESSENTIAL (PRIMARY) HYPERTENSION Status: Chronic Comment: uncontrolled (6) DM2 (diabetes mellitus, type 2) Status: Chronic Comment: controlled. monitor. cont metformin and ISS (7) HLD (hyperlipidemia) Code(s): E78.5 - HYPERLIPIDEMIA, UNSPECIFIED Status: Chronic Comment: stable.cont statin - Plan DVT proph w/SCDs leucocytosis,anemia ,hyponatremia improved -: cont fluid restriction next 48 hours at home and CBC,BMP on monday w OP PCP -: OK to DC from IM stand point * .
== END 2018-10-13 13:26 | disposition home or self-care (01) | DRG 470 ==
LOC: SURG A 10-09 06:16 → SJJU 10-09 13:59
PROVIDERS: ADMIT Orthopaedic Surgery; ATTEND Orthopaedic Surgery
PROC: 0SR904A Replacement of Right Hip Joint with Ceramic on Polyethylene Synthetic Substitute, Uncemented, Open Approach (ICD-10-PCS; principal; 2018-10-09)
DX: M16.11 Unilateral primary osteoarthritis, right hip (principal); D62 Acute posthemorrhagic anemia; E87.1 Hypo-osmolality and hyponatremia; E11.9 Type 2 diabetes mellitus without complications; E78.5 Hyperlipidemia, unspecified; K21.9 Gastro-esophageal reflux disease without esophagitis; F32.9 Major depressive disorder, single episode, unspecified; G43.909 Migraine, unspecified, not intractable, without status migrainosus; Z96.653 Presence of artificial knee joint, bilateral; Z79.84 Long term (current) use of oral hypoglycemic drugs; Z79.899 Other long term (current) drug therapy; D72.829 Elevated white blood cell count, unspecified
CPT/HCPCS: 36415; 36416; 71046; 80048; 81001; 83935; 84300; 84443; 85025; 85027; 85610; 86850; 86900; 86901; 87081; 87086; C1776; J0690; J1885; J2001; J2250; J2370; J2405; J2704; J3010; J3370; J3490; J7050; Q0163

== ENCOUNTER 2022-12-05 23:46 | Inpatient (IN) | payer MEDICARE, OTHER ==
[2022-12-06] MEDS ORDERED: Ondansetron ODT 4 MG TAB PO PRN (02:15)
[2022-12-06] MEDS ORDERED: Ondansetron PF 4 MG/2 ML Vial IVP PRN (02:15)
[2022-12-06] MEDS ORDERED: Senokot 8.6 MG TAB PO PRN (02:35)
[2022-12-06] MEDS ORDERED: Famotidine 20 MG TAB PO PRN (02:35)
[2022-12-06 02:39] VITALS: BMI 30.4
[2022-12-06] MEDS ORDERED: Sodium Chloride 0.9% 1,000 ML IV SCH (02:45)
[2022-12-06 03:17] LABS: SARS-CoV-2 NAA Rapid Test Not Detected (NotDetected)
[2022-12-06 04:30] LABS: #Eosinphils 0.3 thou/uL (0.0-0.7); #Monocytes 0.7 thou/uL (0.11-0.59); #Neutrophils 5.6 thou/uL (1.40-6.50); %Basophils 0.3 % (0.0-1.0); %Eosinophils 3.8 % (0.0-10.0); %Lymphocytes 23.8 % (21.0-51.0); %Monocytes 8.1 % (0.0-10.0); %Neutrophils 63.7 % (42.0-75.0); Hematocrit 40.4 % (36.0-47.0); Hemoglobin 13.7 g/dL (12.0-16.0); Mean Corpuscular HGB CONC 33.9 g/dL (32.0-36.0); Mean Corpuscular Hemoglobin 31.9 pg (27.0-31.0); Mean Platelet Volume 9.7 fL (7.4-10.4); Platelet Count 256 10x3/uL (130-400); RBC Distribution Width 12.4 % (11.5-14.5); White Blood Cell (WBC) Count 8.8 10x3/uL (4.8-10.8)
[2022-12-06 04:44] LABS: INR-International Normal Ratio 1.2; PTT 32.7 sec (22.9-36.1); Prothrombin Time 15.7 sec (12.0-14.7)
[2022-12-06 04:58] LABS: ALT (SGPT) 18 U/L (8-55); AST (SGOT) 46 U/L (5-34); Albumin 2.9 g/dL (3.4-4.8); Alkaline Phosphatase 147 U/L (40-110); Anion Gap 15 mmol/L (10-20); BUN (Urea Nitrogen) 14 mg/dL (9.8-20.1); Calc. Creatinine Clearance 70 mL/min (70-130); Calcium 8.8 mg/dL (7.8-10.44); Carbon Dioxide 21 mmol/L (23-31); Chloride 103 mmol/L (98-107); Estimated GFR 70; Globulin 2.9 g/dL (2.4-3.5); Glucose 98 mg/dL (83-110); Magnesium 1.7 mg/dL (1.6-2.6); Potassium 3.9 mmol/L (3.5-5.1); Protein, Total 5.8 g/dL (5.8-8.1); Sodium 135 mmol/L (136-145)
[2022-12-06] MEDS: Senokot S 8.6-50 MG TAB PO SCH (19:56)
[2022-12-06] MEDS: Polyethylene Glycol 3350 17 GM Packet PO SCH (19:56)
[2022-12-06] MEDS: Morphine 2 MG/ML VIAL SLOW IVP PRN (21:41)
[2022-12-07 05:44] LABS: #Eosinphils 0.5 thou/uL (0.0-0.7); #Monocytes 0.8 thou/uL (0.11-0.59); #Neutrophils 5.4 thou/uL (1.40-6.50); %Basophils 0.4 % (0.0-1.0); %Eosinophils 5.5 % (0.0-10.0); %Lymphocytes 26.6 % (21.0-51.0); %Monocytes 8.7 % (0.0-10.0); %Neutrophils 58.3 % (42.0-75.0); Hematocrit 41.4 % (36.0-47.0); Hemoglobin 13.5 g/dL (12.0-16.0); Mean Corpuscular HGB CONC 32.6 g/dL (32.0-36.0); Mean Corpuscular Hemoglobin 31.4 pg (27.0-31.0); Mean Corpuscular Volume 96.3 fl (78.0-98.0); Mean Platelet Volume 9.7 fL (7.4-10.4); Platelet Count 264 10x3/uL (130-400); RBC Distribution Width 12.2 % (11.5-14.5); White Blood Cell (WBC) Count 9.2 10x3/uL (4.8-10.8)
[2022-12-07 06:50] LABS: Ferritin 187.47 ng/mL (10-291)
[2022-12-07 06:55] LABS: ALT (SGPT) 18 U/L (8-55); AST (SGOT) 45 U/L (5-34); Albumin 2.8 g/dL (3.4-4.8); Alkaline Phosphatase 169 U/L (40-110); Anion Gap 13 mmol/L (10-20); BUN (Urea Nitrogen) 17 mg/dL (9.8-20.1); Bilirubin, Total 0.9 mg/dL (0.2-1.2); Calc. Creatinine Clearance 71 mL/min (70-130); Calcium 8.7 mg/dL (7.8-10.44); Carbon Dioxide 21 mmol/L (23-31); Chloride 105 mmol/L (98-107); Estimated GFR 72; Globulin 2.9 g/dL (2.4-3.5); Glucose 89 mg/dL (83-110); Iron 55 ug/dL (50-170); Iron Binding Capacity, Total 224 mcg/dL (265-497); Protein, Total 5.7 g/dL (5.8-8.1); Sodium 135 mmol/L (136-145)
[2022-12-07 07:05] LABS: HBCM Index 0.06 S/CO (0-0.79); HBSAg Index 0.27 S/CO (0-0.99); Hep A IgM AB Non-Reactive S/CO (NonReactive); Hep A IgM S/CO 0.16 S/CO (0-0.79); Hep B Surf Ag Non-Reactive S/CO (NonReactive); Hep C IgG Ab Non-Reactive S/CO (NonReactive); Hep C Index 0.06 S/CO (0-0.79); Hepatitis B Core IgM Abs Non-Reactive S/CO (NonReactive)
[2022-12-07] MEDS: Senokot S 8.6-50 MG TAB PO SCH ×2 (08:15→20:38)
[2022-12-07] MEDS: Polyethylene Glycol 3350 17 GM Packet PO SCH ×2 (08:15→20:40)
[2022-12-07] MEDS ORDERED: Sodium Chloride 0.9% 1,000 ML IV SCH (08:30)
[2022-12-07] MEDS: traMADol HCl 50 MG TAB PO PRN (13:04)
[2022-12-07] MEDS ORDERED: Lidocaine 1% PF 5 ML VIAL ONE (13:34)
[2022-12-07] MEDS ORDERED: Sodium Bicarbonate 2.5 MEQ/5 ML VIAL ONE (13:34)
[2022-12-07 15:13] LABS: RBC Count-Automated (BF) 3009 /cu.mm; WBC/Nucleated-Auto (BF) 2173 /cu.mm
[2022-12-07] MEDS ORDERED: hydrALAZINE 20 MG/ML VIAL SLOW IVP PRN (15:20)
[2022-12-07 16:00] LABS: BF Color Red; Body Fluid Source Ascites Body Fluid; Clarity Hazy (Clear); Tube # EDTA
[2022-12-07 16:07] LABS: BF Segmented Neutrophils 30 %; Cell Count Non Hematic 50 %; Eosinophils 3 %; Lymphocytes 17 %
[2022-12-07] MEDS: Morphine 2 MG/ML VIAL SLOW IVP PRN (16:42)
[2022-12-08 04:51] LABS: #Basophils 0.1 thou/uL (0.0-0.2); #Eosinphils 0.5 thou/uL (0.0-0.7); #Monocytes 0.9 thou/uL (0.11-0.59); #Neutrophils 6.7 thou/uL (1.40-6.50); %Basophils 0.5 % (0.0-1.0); %Eosinophils 4.7 % (0.0-10.0); %Lymphocytes 17.8 % (21.0-51.0); %Monocytes 9.3 % (0.0-10.0); %Neutrophils 66.8 % (42.0-75.0); Hematocrit 39.7 % (36.0-47.0); Hemoglobin 13.1 g/dL (12.0-16.0); Mean Corpuscular Hemoglobin 31.6 pg (27.0-31.0); Mean Corpuscular Volume 95.7 fl (78.0-98.0); Mean Platelet Volume 9.8 fL (7.4-10.4); Platelet Count 233 10x3/uL (130-400); RBC Distribution Width 12.3 % (11.5-14.5); Red Blood Cell (RBC) Count 4.15 mill/uL (4.20-5.40)
[2022-12-08 04:58] LABS: Hemoglobin A1c 5.8 % (4.0-6.0)
[2022-12-08 05:13] LABS: ALT (SGPT) 22 U/L (8-55); AST (SGOT) 66 U/L (5-34); Albumin 2.8 g/dL (3.4-4.8); Alkaline Phosphatase 198 U/L (40-110); Anion Gap 12 mmol/L (10-20); BUN (Urea Nitrogen) 19 mg/dL (9.8-20.1); Bilirubin, Total 0.7 mg/dL (0.2-1.2); Calc. Creatinine Clearance 67 mL/min (70-130); Calcium 8.9 mg/dL (7.8-10.44); Carbon Dioxide 21 mmol/L (23-31); Chloride 104 mmol/L (98-107); Estimated GFR 66; Globulin 2.7 g/dL (2.4-3.5); Glucose 118 mg/dL (83-110); Protein, Total 5.5 g/dL (5.8-8.1); Sodium 133 mmol/L (136-145)
[2022-12-08] MEDS: Polyethylene Glycol 3350 17 GM Packet PO SCH ×2 (09:12→20:42)
[2022-12-08] MEDS: Senokot S 8.6-50 MG TAB PO SCH ×2 (09:12→20:25)
[2022-12-08] MEDS ORDERED: Mineral Oil ENEMA PR SCH (12:45)
[2022-12-08] MEDS: Morphine 2 MG/ML VIAL SLOW IVP PRN (14:21)
[2022-12-08] MEDS: Heparin 5,000 UNITS/ML VIAL SC SCH (20:24)
[2022-12-08] MEDS: traMADol HCl 50 MG TAB PO PRN (20:25)
[2022-12-09 04:54] LABS: #Basophils 0.1 thou/uL (0.0-0.2); #Eosinphils 0.5 thou/uL (0.0-0.7); #Monocytes 0.9 thou/uL (0.11-0.59); #Neutrophils 7.6 thou/uL (1.40-6.50); %Basophils 0.4 % (0.0-1.0); %Lymphocytes 19.9 % (21.0-51.0); %Monocytes 8.1 % (0.0-10.0); %Neutrophils 67.1 % (42.0-75.0); Hematocrit 40.7 % (36.0-47.0); Hemoglobin 13.7 g/dL (12.0-16.0); Mean Corpuscular HGB CONC 33.7 g/dL (32.0-36.0); Mean Corpuscular Hemoglobin 31.7 pg (27.0-31.0); Mean Corpuscular Volume 94.2 fl (78.0-98.0); Mean Platelet Volume 9.7 fL (7.4-10.4); Platelet Count 216 10x3/uL (130-400); RBC Distribution Width 12.2 % (11.5-14.5); Red Blood Cell (RBC) Count 4.32 mill/uL (4.20-5.40); White Blood Cell (WBC) Count 11.4 10x3/uL (4.8-10.8)
[2022-12-09 05:18] LABS: ALT (SGPT) 36 U/L (8-55); AST (SGOT) 115 U/L (5-34); Albumin 2.8 g/dL (3.4-4.8); Alkaline Phosphatase 254 U/L (40-110); Anion Gap 11 mmol/L (10-20); BUN (Urea Nitrogen) 19 mg/dL (9.8-20.1); Bilirubin, Total 0.6 mg/dL (0.2-1.2); Calc. Creatinine Clearance 71 mL/min (70-130); Calcium 8.8 mg/dL (7.8-10.44); Carbon Dioxide 23 mmol/L (23-31); Chloride 104 mmol/L (98-107); Estimated GFR 71; Globulin 2.7 g/dL (2.4-3.5); Glucose 132 mg/dL (83-110); Protein, Total 5.5 g/dL (5.8-8.1); Sodium 134 mmol/L (136-145)
[2022-12-09] MEDS: Polyethylene Glycol 3350 17 GM Packet PO SCH ×2 (08:47→20:34)
[2022-12-09] MEDS: Senokot S 8.6-50 MG TAB PO SCH ×2 (08:47→20:33)
[2022-12-09] MEDS: Heparin 5,000 UNITS/ML VIAL SC SCH ×2 (08:48→20:33)
[2022-12-09 12:17] LABS: Smooth Muscle Total ABS 8 Units (0-19)
[2022-12-09] MEDS: traMADol HCl 50 MG TAB PO PRN (12:32)
[2022-12-09] MEDS: Metoprolol Tartrate 50 MG TAB PO SCH (20:34)
[2022-12-10 04:58] LABS: #Basophils 0.1 thou/uL (0.0-0.2); #Eosinphils 0.5 thou/uL (0.0-0.7); #Monocytes 1.1 thou/uL (0.11-0.59); #Neutrophils 8.3 thou/uL (1.40-6.50); %Basophils 0.6 % (0.0-1.0); %Lymphocytes 14.4 % (21.0-51.0); %Monocytes 9.3 % (0.0-10.0); %Neutrophils 71.2 % (42.0-75.0); Hemoglobin 13.9 g/dL (12.0-16.0); Mean Corpuscular HGB CONC 31.6 g/dL (32.0-36.0); Mean Corpuscular Hemoglobin 31.8 pg (27.0-31.0); Mean Corpuscular Volume 100.7 fl (78.0-98.0); Mean Platelet Volume 11.5 fL (7.4-10.4); Platelet Count 153 10x3/uL (130-400); RBC Distribution Width 12.8 % (11.5-14.5); Red Blood Cell (RBC) Count 4.37 mill/uL (4.20-5.40); White Blood Cell (WBC) Count 11.7 10x3/uL (4.8-10.8)
[2022-12-10] MEDS: Polyethylene Glycol 3350 17 GM Packet PO SCH ×2 (08:16→19:50)
[2022-12-10] MEDS: Metoprolol Tartrate 50 MG TAB PO SCH ×2 (08:16→19:50)
[2022-12-10] MEDS: Heparin 5,000 UNITS/ML VIAL SC SCH ×2 (08:16→19:50)
[2022-12-10] MEDS: Senokot S 8.6-50 MG TAB PO SCH ×2 (08:16→19:50)
[2022-12-10] MEDS: traMADol HCl 50 MG TAB PO PRN (08:31)
[2022-12-10] MEDS: Morphine 2 MG/ML VIAL SLOW IVP PRN ×2 (09:49→14:05)
[2022-12-10 10:52] LABS: Albumin 2.6 g/dL (3.4-4.8)
[2022-12-10 10:53] LABS: Chloride 103 mmol/L (98-107); Potassium 4.6 mmol/L (3.5-5.1); Sodium 136 mmol/L (136-145)
[2022-12-10 10:54] LABS: Calcium 9.2 mg/dL (7.8-10.44); Glucose 112 mg/dL (83-110)
[2022-12-10 10:55] LABS: Protein, Total 5.6 g/dL (5.8-8.1)
[2022-12-10 10:56] LABS: Anion Gap 16 mmol/L (10-20); Carbon Dioxide 22 mmol/L (23-31)
[2022-12-10 10:57] LABS: Alkaline Phosphatase 342 U/L (40-110); Calc. Creatinine Clearance 76 mL/min (70-130); Estimated GFR 77
[2022-12-10 10:58] LABS: BUN (Urea Nitrogen) 22 mg/dL (9.8-20.1)
[2022-12-10 10:59] LABS: AST (SGOT) 188 U/L (5-34)
[2022-12-10 11:00] LABS: ALT (SGPT) 61 U/L (8-55)
[2022-12-10 15:49] LABS: ANA Symphony (Qualitative) Negative (Negative); ANA Symphony (Quantitative) 0.3 Ratio (< 0.7 Negative); EliA Vaculitis New Method **** NEW METHOD ****; Mitochondrial Ab 2.5 U/mL (<4 Negative); dsDNA IgG Antibody 1.7 IU/mL (<10 Negative)
[2022-12-11] MEDS: Polyethylene Glycol 3350 17 GM Packet PO SCH ×2 (08:22→21:20)
[2022-12-11] MEDS: Heparin 5,000 UNITS/ML VIAL SC SCH ×2 (08:22→21:20)
[2022-12-11] MEDS: Senokot S 8.6-50 MG TAB PO SCH ×2 (08:22→21:19)
[2022-12-11] MEDS: Morphine 2 MG/ML VIAL SLOW IVP PRN (08:23)
[2022-12-11] MEDS: Metoprolol Tartrate 50 MG TAB PO SCH ×2 (08:31→21:41)
[2022-12-11] MEDS: traMADol HCl 50 MG TAB PO PRN ×2 (13:34→21:19)
[2022-12-11] MEDS: Metoprolol Tartrate 25 MG TAB PO SCH (21:18)
[2022-12-11] MEDS: Acetaminophen 325 MG TAB PO PRN (23:59)
[2022-12-12] MEDS: Senokot S 8.6-50 MG TAB PO SCH ×2 (09:01→20:47)
[2022-12-12] MEDS: Metoprolol Tartrate 25 MG TAB PO SCH ×2 (09:01→20:47)
[2022-12-12] MEDS: Heparin 5,000 UNITS/ML VIAL SC SCH ×2 (09:01→20:47)
[2022-12-12] MEDS: Polyethylene Glycol 3350 17 GM Packet PO SCH ×2 (09:01→20:47)
[2022-12-12] MEDS: traMADol HCl 50 MG TAB PO PRN ×2 (09:22→14:58)
[2022-12-12 10:44] LABS: #Basophils 0.1 thou/uL (0.0-0.2); #Eosinphils 0.2 thou/uL (0.0-0.7); #Monocytes 1.5 thou/uL (0.11-0.59); #Neutrophils 13.8 thou/uL (1.40-6.50); %Basophils 0.3 % (0.0-1.0); %Eosinophils 1.1 % (0.0-10.0); %Lymphocytes 11.7 % (21.0-51.0); %Monocytes 8.5 % (0.0-10.0); %Neutrophils 77.2 % (42.0-75.0); Hematocrit 46.3 % (36.0-47.0); Mean Corpuscular HGB CONC 32.4 g/dL (32.0-36.0); Mean Corpuscular Hemoglobin 31.8 pg (27.0-31.0); Mean Corpuscular Volume 98.1 fl (78.0-98.0); Mean Platelet Volume 10.3 fL (7.4-10.4); Platelet Count 233 10x3/uL (130-400); RBC Distribution Width 12.7 % (11.5-14.5); Red Blood Cell (RBC) Count 4.72 mill/uL (4.20-5.40); White Blood Cell (WBC) Count 17.9 10x3/uL (4.8-10.8)
[2022-12-12 11:07] LABS: ALT (SGPT) 95 U/L (8-55); AST (SGOT) 267 U/L (5-34); Albumin 2.8 g/dL (3.4-4.8); Alkaline Phosphatase 409 U/L (40-110); Anion Gap 24 mmol/L (10-20); BUN (Urea Nitrogen) 55 mg/dL (9.8-20.1); Bilirubin, Total 2.1 mg/dL (0.2-1.2); Calc. Creatinine Clearance 25 mL/min (70-130); Calcium 9.4 mg/dL (7.8-10.44); Carbon Dioxide 15 mmol/L (23-31); Chloride 98 mmol/L (98-107); Estimated GFR 20; Globulin 3.1 g/dL (2.4-3.5); Glucose 133 mg/dL (83-110); Potassium 5.6 mmol/L (3.5-5.1); Protein, Total 5.9 g/dL (5.8-8.1); Sodium 131 mmol/L (136-145)
[2022-12-12] MEDS ORDERED: Sodium Chloride 0.9% 1,000 ML IV SCH (12:00)
[2022-12-12] MEDS: Sodium Chloride 0.9% 1,000 ML IV SCH ×2 (12:18→23:00)
[2022-12-12] MEDS: Acetaminophen 325 MG TAB PO PRN (14:58)
[2022-12-13] MEDS: Sodium Chloride 0.9% 1,000 ML IV SCH (01:08)
[2022-12-13] MEDS: traMADol HCl 50 MG TAB PO PRN (02:19)
[2022-12-13 03:42] VITALS: BP 139/61; TEMP 97.4
[2022-12-13] MEDS ORDERED: traMADol HCl 50 MG TAB PO SCH (04:45)
[2022-12-13 05:03] LABS: #Basophils 0.1 thou/uL (0.0-0.2); #Eosinphils 0.2 thou/uL (0.0-0.7); #Monocytes 2.2 thou/uL (0.11-0.59); #Neutrophils 18.4 thou/uL (1.40-6.50); %Basophils 0.3 % (0.0-1.0); %Eosinophils 0.7 % (0.0-10.0); %Lymphocytes 7.4 % (21.0-51.0); %Monocytes 9.6 % (0.0-10.0); %Neutrophils 80.2 % (42.0-75.0); Hematocrit 48.5 % (36.0-47.0); Hemoglobin 14.6 g/dL (12.0-16.0); Mean Corpuscular HGB CONC 30.1 g/dL (32.0-36.0); Mean Corpuscular Hemoglobin 31.4 pg (27.0-31.0); Mean Platelet Volume 10.4 fL (7.4-10.4); Platelet Count 216 10x3/uL (130-400); RBC Distribution Width 13.1 % (11.5-14.5); Red Blood Cell (RBC) Count 4.65 mill/uL (4.20-5.40); White Blood Cell (WBC) Count 22.9 10x3/uL (4.8-10.8)
[2022-12-13] MEDS: traMADol HCl 50 MG TAB PO SCH ×2 (05:07→06:12)
[2022-12-13] MEDS: Acetaminophen 500 MG TAB PO SCH ×2 (05:08→06:13)
[2022-12-13 05:21] LABS: ALT (SGPT) 169 U/L (8-55); AST (SGOT) 555 U/L (5-34); Albumin 2.6 g/dL (3.4-4.8); Alkaline Phosphatase 384 U/L (40-110); BUN (Urea Nitrogen) 68 mg/dL (9.8-20.1); Bilirubin, Total 2.2 mg/dL (0.2-1.2); Calc. Creatinine Clearance 19 mL/min (70-130); Calcium 8.9 mg/dL (7.8-10.44); Chloride 98 mmol/L (98-107); Estimated GFR 15; Globulin 3.3 g/dL (2.4-3.5); Glucose 96 mg/dL (83-110); Potassium 5.9 mmol/L (3.5-5.1); Protein, Total 5.9 g/dL (5.8-8.1); Sodium 131 mmol/L (136-145)
[2022-12-13 05:27] LABS: Carbon Dioxide Less than 8 mmol/L (23-31)
[2022-12-13 05:30] LABS: Mean Corpuscular Volume 104.3 fl (78.0-98.0)
[2022-12-13 05:46] LABS: Base Excess (BEa) -25.1 mEq/L (-2.0 to +3.0); CO2 Tension 27.2 mmHg (35.0-45.0); Calcium, Ionized (arterial) 1.06 mmol/L (1.12-1.30); Carboxyhemoglobin (COHb) 0.1 gm% (0.0-3.0); Hematocrit-ABG 45 % (36.0-47.0); Hemoglobin (Hb) 15.3 g/dL (12.0-16.0); O2 Tension (PaO2), arterial 80.8 mmHg (> 60.0); Potassium - ABG Lab 5.51 mmol/L (3.70-5.30)
[2022-12-13 05:47] LABS: Actual Bicarbonate (HCO3a) 5.9 mEq/L (22-28); Puncture Site LB; pH, Arterial 6.957 (7.35-7.45)
[2022-12-13] MEDS ORDERED: Lorazepam 2 MG/ML VIAL ONE (05:54)
[2022-12-13] MEDS ORDERED: Sodium Bicarb 50 MEQ/50 ML VIAL ONE (05:58)
[2022-12-13] MEDS ORDERED: Lorazepam 2 MG/ML VIAL SLOW IVP SCH (06:00)
[2022-12-13] MEDS ORDERED: Sodium Bicarb 50 MEQ/50 ML VIAL IVP SCH (06:00)
[2022-12-13] MEDS ORDERED: Morphine 4 MG/ML VIAL ONE (06:08)
[2022-12-13 06:26] LABS: Lactic Acid Greater than 13.4 mmol/L (0.5-2.2)
[2022-12-13] MEDS ORDERED: Sodium Bicarbonate 150 MEQ in Dextrose 5% in Water 1,000 ML IV SCH (06:30)
[2022-12-13] MEDS ORDERED: Morphine 4 MG/ML VIAL SLOW IVP SCH (06:30)
[2022-12-13] MEDS: Morphine 2 MG/ML VIAL SLOW IVP PRN ×5 (06:42→10:02)
[2022-12-13] MEDS: Lorazepam 2 MG/ML VIAL SLOW IVP PRN ×3 (07:17→10:02)
[2022-12-13] MEDS: Metoprolol Tartrate 25 MG TAB PO SCH (07:55)
[2022-12-13] MEDS: Heparin 5,000 UNITS/ML VIAL SC SCH (07:55)
[2022-12-13] MEDS: Polyethylene Glycol 3350 17 GM Packet PO SCH (07:55)
[2022-12-13] MEDS: Senokot S 8.6-50 MG TAB PO SCH (07:55)
== END 2022-12-13 10:28 | disposition expired | DRG 374 ==
LOC: INTOOBSV 12-06 01:36 → 2SW 12-06 01:36 → OBSVTOIN 12-07 15:43 → IMCU/EMU 12-13 05:53
PROVIDERS: ADMIT Student in an Organized Health Care Education/Training Program; ATTEND Internal Medicine
PROC: 0W9G3ZZ Drainage of Peritoneal Cavity, Percutaneous Approach (ICD-10-PCS; principal; 2022-12-07)
PROC: 4A033R1 Measurement of Arterial Saturation, Peripheral, Percutaneous Approach (ICD-10-PCS; 2022-12-13)
DX: C78.6 Secondary malignant neoplasm of retroperitoneum and peritoneum (principal); J96.01 Acute respiratory failure with hypoxia; N17.9 Acute kidney failure, unspecified; R18.0 Malignant ascites; C78.7 Secondary malignant neoplasm of liver and intrahepatic bile duct; C78.02 Secondary malignant neoplasm of left lung; C78.01 Secondary malignant neoplasm of right lung; E87.1 Hypo-osmolality and hyponatremia; Z66 Do not resuscitate; Z51.5 Encounter for palliative care; K74.60 Unspecified cirrhosis of liver; R62.7 Adult failure to thrive; Z68.30 Body mass index [BMI] 30.0-30.9, adult; E11.9 Type 2 diabetes mellitus without complications; I10 Essential (primary) hypertension; K21.9 Gastro-esophageal reflux disease without esophagitis; G43.909 Migraine, unspecified, not intractable, without status migrainosus; Z90.49 Acquired absence of other specified parts of digestive tract; E78.5 Hyperlipidemia, unspecified; F32.A Depression, unspecified; Z90.89 Acquired absence of other organs; Z90.710 Acquired absence of both cervix and uterus; Z83.3 Family history of diabetes mellitus; K59.00 Constipation, unspecified; Z96.653 Presence of artificial knee joint, bilateral; Z20.822 Contact with and (suspected) exposure to COVID-19; K72.90 Hepatic failure, unspecified without coma; E86.0 Dehydration; R53.81 Other malaise; C80.1 Malignant (primary) neoplasm, unspecified
CPT/HCPCS: 36415; 36416; 49083; 80053; 80074; 82105; 82378; 82728; 82805; 83036; 83516; 83540; 83550; 83605; 83735; 83880; 84075; 84145; 84157; 84443; 85025; 85060; 85610; 85730; 86015; 86038; 86225; 86300; 86301; 86304; 87070; 87205; 88112; 88305; 88341; 88342; 89051; 93005; 93010; 93306; J1644; J2060; J2270; J2272; J7050; Q0162; U0002